=== PATIENT | female | born 1940 | race Caucasian/White ===

== ENCOUNTER → 2016-10-27 | Outpatient (CLI) | payer MEDICARE, BC ==
[2016-10-27 09:36] LABS: Basophils # (A) 0.1 k/uL (0-0.2); Basophils % (A) 1 %; CH 30.9; CHCM 33.7; Eosinophils # (A) 0.2 k/uL (0-0.7); Eosinophils % (A) 4 %; HCT 40.8 % (34.0-46.0); HDW 2.58; HGB 13.2 gm/dL (11.4-16.0); Luc # (Auto) 0.13; Luc % (Auto) 2; Lymphocytes # (A) 1.3 k/uL (1.0-4.8); Lymphocytes % (A) 23 %; MCH 29.7 pg (25.0-35.0); MCHC 32.3 g/dL (31.0-37.0); MCV 92.2 fL (80.0-100.0); Mean Platelet Volume 8.3; Monocytes # (A) 0.4 k/uL (0-1.0); Monocytes % (A) 7 %; Neutrophils # (A) 3.7 k/uL (1.3-7.7); Neutrophils % (A) 63 %; RBC 4.43 m/uL (3.80-5.40); RDW 13.1 % (11.5-15.5); WBC 5.8 k/uL (3.8-10.6)
[2016-10-27 09:42] LABS: ALT 27 U/L (9-52); AST 20 U/L (14-36); Alkaline Phosphatase 78 U/L (38-126); Anion Gap 9 mmol/L; Blood Urea Nitrogen 21 mg/dL (7-17); Calcium 9.9 mg/dL (8.4-10.2); Carbon Dioxide 30 mmol/L (22-30); Chloride 104 mmol/L (98-107); Cholesterol 179 mg/dL (<200); Glucose 95 mg/dL (74-99); HDL Cholesterol 68 mg/dL (40-60); Non-African American GFR(MDRD) 50 (>60 ml/min/1.73 sqM); Sodium 143 mmol/L (137-145); Total Bilirubin 1.5 mg/dL (0.2-1.3); Total Protein 7.3 g/dL (6.3-8.2); Triglycerides 109 mg/dL (<150)
== END | disposition home or self-care (01) ==
LOC: LABWHC1 08:55
PROVIDERS: ATTEND Physician Assistant Medical
DX: I10 Essential (primary) hypertension (principal); I27.2 Other secondary pulmonary hypertension; Z86.39 Personal history of other endocrine, nutritional and metabolic disease
CPT/HCPCS: 36415; 80053; 80061; 84443; 85025

== ENCOUNTER → 2017-02-17 | Outpatient (CLI) | payer MEDICARE, BC ==
[2017-02-17 09:44] LABS: CHCM 33.1; HCT 38.8 % (34.0-46.0); HDW 2.41; HGB 12.8 gm/dL (11.4-16.0); Mean Platelet Volume 8.2; RBC 4.13 m/uL (3.80-5.40); RDW 13.5 % (11.5-15.5); WBC 5.7 k/uL (3.8-10.6)
[2017-02-17 10:25] LABS: Calcium 9.9 mg/dL (8.4-10.2); Potassium 4.1 mmol/L (3.5-5.1); Total Bilirubin 1.5 mg/dL (0.2-1.3); Total Protein 7.4 g/dL (6.3-8.2)
== END | disposition home or self-care (01) ==
LOC: LABWHC1 08:27
PROVIDERS: ATTEND Physician Assistant Medical
DX: E03.9 Hypothyroidism, unspecified (principal); M85.80 Other specified disorders of bone density and structure, unspecified site; F41.1 Generalized anxiety disorder
CPT/HCPCS: 36415; 80053; 80061; 84439; 84443; 84480; 85027

== ENCOUNTER → 2017-03-15 | Outpatient (CLI) | payer MEDICARE, BC ==
--- NOTE | 2017-03-16 13:01 | MM ---
Reason for exam: screening (asymptomatic). Last mammogram was performed 2 years and 1 month ago. History: Patient is postmenopausal. Benign excisional biopsy of the right breast. Took estrogen for 7 years beginning at age 45. Took progesterone for 7 years beginning at age 45. Physical Findings: A clinical breast exam by your physician is recommended on an annual basis and results should be correlated with mammographic findings. MG Screening Mammo w CAD Bilateral CC and MLO view(s) were taken. Prior study comparison: February 15, 2015, bilateral MG screening mammo w CAD. The breast tissue is almost entirely fat. No significant changes when compared with prior studies. ASSESSMENT: Benign, BI-RAD 2 RECOMMENDATION: Routine screening mammogram of both breasts in 1 year.
== END | disposition home or self-care (01) ==
LOC: RADMAMWWP 09:15
PROVIDERS: ATTEND Family Medicine
DX: Z12.31 Encounter for screening mammogram for malignant neoplasm of breast (principal)

== ENCOUNTER → 2017-04-29 | Outpatient (CLI) | payer MEDICARE, BC ==
[2017-04-29 09:12] LABS: Basophils % (A) 1 %; CH 30.4; CHCM 33.3; Eosinophils # (A) 0.2 k/uL (0-0.7); Eosinophils % (A) 4 %; HCT 36.9 % (34.0-46.0); HDW 2.43; HGB 12.4 gm/dL (11.4-16.0); Luc # (Auto) 0.21; Luc % (Auto) 4; Lymphocytes # (A) 1.1 k/uL (1.0-4.8); Lymphocytes % (A) 21 %; MCHC 33.8 g/dL (31.0-37.0); MCV 91.7 fL (80.0-100.0); Mean Platelet Volume 8.3; Monocytes # (A) 0.4 k/uL (0-1.0); Monocytes % (A) 7 %; Neutrophils # (A) 3.4 k/uL (1.3-7.7); Neutrophils % (A) 64 %; RBC 4.02 m/uL (3.80-5.40); RDW 13.4 % (11.5-15.5); WBC 5.3 k/uL (3.8-10.6); WBC (Perox) 5.79
== END | disposition home or self-care (01) ==
LOC: LABPAT 08:38
PROVIDERS: ATTEND Obstetrics & Gynecology
DX: Z01.810 Encounter for preprocedural cardiovascular examination (principal); I10 Essential (primary) hypertension; N95.0 Postmenopausal bleeding
CPT/HCPCS: 85025; 93005

== ENCOUNTER 2017-05-04 08:24 | Day surgery (SDC) | payer MEDICARE, BC ==
[2017-04-28 09:13] VITALS: BMI 38.3
[~2017-05-04 08:24] MED LIST: DEXAMETHASONE SOD PHOSPHATE 10 MG/ML 1 ML VIAL IV ONE; HYDROmorphone 1 MG/ML 1 ML SYRINGE IVP PRN; LACTATED RINGERS 1,000 ML IV SCH; MIDAZOLAM 2 MG/2 ML VIAL IV PRN; ONDANSETRON 4 MG/2 ML VIAL IVP ONE; Pre Op ABX Message 1 EACH MISC MISCELLANE ONE
[2017-05-04] MEDS ORDERED: LIDOCAINE 1% 20 ML VIAL (10MG/ML) FOR IV START INTRADERMA ONE (09:07)
[2017-05-04] MEDS ORDERED: MIDAZOLAM 2 MG/2 ML VIAL ONE (09:43)
[2017-05-04] MEDS ORDERED: SUCCINYLCHOLINE CHLORIDE 100 MG/5 ML SYR IV ONE (09:43)
[2017-05-04] MEDS ORDERED: fentaNYL (PF) 50 MCG/ML 2 ML AMP ONE (09:43)
[2017-05-04] MEDS ORDERED: LIDOCAINE 1% INJ 10MG/ML (20 ML MDV) ONE (09:43)
[2017-05-04] MEDS ORDERED: KETOROLAC 30 MG/ML 1 ML VIAL ONE (09:43)
[2017-05-04] MEDS ORDERED: PROPOFOL 10 MG/ML 20 ML VIAL IV ONE (09:43)
[2017-05-04] MEDS ORDERED: SILVER NITRATE APPLICATOR 1 EACH STICK..EA. TOPICAL ONE (10:15)
--- NOTE | 2017-05-04 10:20 | P.OP ---
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 Procedure(s) Performed: Hysteroscopy, fractional D&C Implants: Anesthesia: GETA Surgeon: Joselyn Carbajal Estimated Blood Loss (ml): 10 IV fluids (ml): 400 Urine output (ml): 50 Pathology: other (Endometrial curettings and polyps, endocervical curettings) Condition: stable Disposition: PACU Indications for Procedure: Operative Findings: Description of Procedure: Patient is brought to the operating suite where a general anesthetic is administered. She's placed in the dorsal lithotomy position. The cervix vagina perineum and lower abdominal areas are all prepped and draped in usual sterile fashion. The appropriate timeout is performed to assure proper patient and procedural identification. Bladder is drained for approximately 50 mL of clear yellow urine. Weighted speculum was placed into the vagina. Anterior lip of the atrophic appearing cervix is grasped with a double-tooth tenaculum. And of cervical curettings are performed with a Chucho curet and sent to pathology under separate cover. Uterus then sounds to a depth of 11 cm in the anteverted position. The cervix is gently and systematically dilated using Hanks dilators. The hysteroscope was then placed and the cavity is distended with sterile saline. There is a cluster of polypoid appearing tissue in the left upper aspect of the uterus. The hysteroscope was removed. A medium sharp curette is used and multiple polyps are procured. Polyp forcep is used. When I am convinced that the cavity is negative the hysteroscope is reintroduced. The cavity is free distended and appears clear. All sponge needle and enhancement counts are correct at the end of this procedure. A nitrous stick is used on the anterior lip of the cervix to coagulate a small blood vessel. Hemostasis is excellent. Patient is brought back to the recovery room in stable condition with vital signs including a pulse of 54, 99% O2 saturation, blood pressure 112/59. Toradol is given prior to leaving the operative suite. Antibiotics are not deemed appropriate.
[2017-05-04 10:51] VITALS: TEMP 97
--- NOTE | 2017-05-04 11:25 | XR ---
EXAMINATION TYPE: XR chest 1V DATE OF EXAM: 05/04/2017 COMPARISON: Prior chest x-ray 01/07/2016 HISTORY: Cough TECHNIQUE: Single frontal view of the chest is obtained. FINDINGS: There are overlying cardiac leads. Heart is likely stable accounting for differences in [place]. No pneumothorax or pleural effusion evident. Strand-like densities are present within the ken ngs which may reflect atelectasis or scarring. IMPRESSION: There are areas of probable atelectasis, follow-up PA and lateral chest x-ray is recomme nded.
[2017-05-04 12:07] VITALS: BP 160/72; PULSE 74; RESP 18
== END 2017-05-04 12:08 | disposition home or self-care (01) ==
LOC: OR 08:24
PROVIDERS: ATTEND Obstetrics & Gynecology
DX: N85.02 Endometrial intraepithelial neoplasia [EIN] (principal); I10 Essential (primary) hypertension; E07.9 Disorder of thyroid, unspecified; Z79.899 Other long term (current) drug therapy; Z91.09 Other allergy status, other than to drugs and biological substances
CPT/HCPCS: 88305; 71010; 58558; J2250; J1100; J2405; J2001; J3010; J1885; J0330; J2704

== ENCOUNTER → 2017-07-13 | Outpatient (CLI) | payer MEDICARE, BC ==
[2017-07-13 10:19] LABS: Basophils % (A) 1 %; CH 30.6; CHCM 32.3; Eosinophils # (A) 0.2 k/uL (0-0.7); Eosinophils % (A) 3 %; HCT 40.4 % (34.0-46.0); HDW 2.35; HGB 13.3 gm/dL (11.4-16.0); Luc # (Auto) 0.15; Luc % (Auto) 3; Lymphocytes # (A) 0.9 k/uL (1.0-4.8); Lymphocytes % (A) 18 %; MCH 31.2 pg (25.0-35.0); MCHC 32.8 g/dL (31.0-37.0); MCV 94.9 fL (80.0-100.0); Mean Platelet Volume 7.7; Monocytes # (A) 0.3 k/uL (0-1.0); Monocytes % (A) 6 %; Neutrophils # (A) 3.6 k/uL (1.3-7.7); Neutrophils % (A) 70 %; RBC 4.25 m/uL (3.80-5.40); RDW 13.2 % (11.5-15.5); WBC 5.1 k/uL (3.8-10.6); WBC (Perox) 5.59
[2017-07-13 10:32] LABS: Anion Gap 9 mmol/L; Blood Urea Nitrogen 17 mg/dL (7-17); Carbon Dioxide 29 mmol/L (22-30); Chloride 103 mmol/L (98-107); Non-African American GFR(MDRD) 54 (>60 ml/min/1.73 sqM); Potassium 3.8 mmol/L (3.5-5.1); Sodium 141 mmol/L (137-145)
== END | disposition home or self-care (01) ==
LOC: LABPAT 09:18
PROVIDERS: ATTEND Obstetrics & Gynecology
DX: Z01.812 Encounter for preprocedural laboratory examination (principal); N85.00 Endometrial hyperplasia, unspecified
CPT/HCPCS: 80051; 82565; 84520; 85025; 86850; 86900; 86901; 87086

== ENCOUNTER 2017-07-20 05:55 | Day surgery (SDC) | payer MEDICARE, BC ==
[2017-07-12 12:22] VITALS: BMI 37.1
--- NOTE | 2017-07-19 14:17 | HP ---
HISTORY AND PHYSICAL DATE OF SERVICE: 07/30/2017 This is a 76-year-old female, 5, para 2-0-3-2 who presented initially with a history of postmenopausal bleeding. Patient underwent D&C and hysteroscopy on 05/04/2017, pathology report revealing hyperplasia, complex with atypia. She has a previous history of hyperplasia of the endometrium in 2013, which was simple without atypia. At that time, she was treated with Megace for 3 months, repeat sampling revealed disordered proliferative endometrium. Her vaginal bleeding has returned, and re-evaluation is suggesting progression of the lesion. At this time, she is electing hysterectomy. We will do vaginal hysterectomy, inspect the ovaries and removed them only if abnormal to inspection or easily obtainable, there is no evidence of rectocele or cystocele noted. Patient is also consented to total abdominal hysterectomy, bilateral salpingo-oophorectomy, if surgery cannot be accomplished through the vaginal route. All risks and benefits have been reviewed in detail. All questions answered. Second opinion offered and declined. PAST MEDICAL HISTORY: Significant for hypertension and thyroid disease. PAST SURGICAL HISTORY: Endometrial biopsy in the past, D&C recently, cataract removal. CURRENT MEDICATIONS: 1. Atenolol twice daily. 2. Hydrochlorothiazide daily. 3. Simvastatin daily. 4. Synthroid daily. Allergies include over the counter DRY MOUTH LUBRICANT SPRAY to which she reports swelling of the oral cavity. FAMILY HISTORY: Significant for asthma, heart problems, and intestinal cancer. REPRODUCTIVE HISTORY: Three miscarriages noted, 2 vaginal deliveries, both uncomplicated and full term. SOCIAL HISTORY: Patient is a nonsmoker, she denies alcohol or drug use. REVIEW OF SYSTEMS: Otherwise, negative. PHYSICAL EXAM: This is a pleasant female, 5 foot 5 inches, 232 pounds, BMI 38, blood pressure 142/90. The general physical exam reveals normal appearing, well-nourished constitution. The neck is negative for lymphadenopathy, thyroid is normal in size with no nodules. Chest is clear to auscultation in all hess anteriorly and posteriorly. Cardiovascular exam reveals regular rate and rhythm, no obvious murmur click or rub. Breasts revealed breasts normal to inspection, breast exam is declined by the patient secondary to recent normal mammogram. Abdomen is soft, nontender, moderately obese, no organosplenomegaly. Good bowel sounds. No pain to deep palpation or rigidity. On external genitalia exam, organs appears slightly atrophic, no unusual discharge or odor. Cervix is multiparous, without active bleeding upon inspection. Uterus is small, mobile, midline, with a small amount of prolapse noted. Adnexa are negative, small, no masses or tenderness. Rectal exam reveals good sphincter tone, FIT negative stool, no rectal masses. There are no obvious lymph nodes noted in the inguinal region. IMPRESSION: Postmenopausal bleeding, D&C revealing endometrial hyperplasia, complex with atypia. Due to the recurrent and worsening nature of this lesion, decision has been made to proceed with hysterectomy. PLAN: We will proceed with vaginal hysterectomy, possible bilateral salpingo-oophorectomy, possible KENNY-BSO. The risks of surgery including bleeding, infection, perforation or damage to bowel, bladder, ureters, all have been reviewed. Second opinion is offered and declined. I believe patient understands our discussion with no reservation or other issues. MMODL / IJN: [id number] /
[~2017-07-20 05:55] MED LIST changes: +HYDROmorphone 0.5 MG/0.5 ML SYRINGE IVP PRN; -HYDROmorphone 1 MG/ML 1 ML SYRINGE IVP PRN; -LACTATED RINGERS 1,000 ML IV SCH; -Pre Op ABX Message 1 EACH MISC MISCELLANE ONE; +ceFAZolin 2 GM in SODIUM CHLORIDE 0.9% 100 ML IVPB ONE
[2017-07-20] MEDS ORDERED: LIDOCAINE 1% 20 ML VIAL (10MG/ML) FOR IV START INTRADERMA ONE (06:40)
[2017-07-20] MEDS: LACTATED RINGERS 1,000 ML IV SCH ×3 (06:42→22:17)
[2017-07-20] MEDS ORDERED: fentaNYL (PF) 50 MCG/ML 2 ML AMP ONE (07:50)
[2017-07-20] MEDS ORDERED: MIDAZOLAM 2 MG/2 ML VIAL ONE (07:50)
[2017-07-20] MEDS ORDERED: LIDOCAINE 1% INJ 10MG/ML (20 ML MDV) ONE (07:50)
[2017-07-20] MEDS ORDERED: PROPOFOL 10 MG/ML 20 ML VIAL IV ONE (07:50)
[2017-07-20] MEDS ORDERED: KETOROLAC 30 MG/ML 1 ML VIAL ONE (07:50)
[2017-07-20] MEDS ORDERED: VASOPRESSIN 20 UNIT/ML 1 ML VIAL SQ ONE (08:16)
[2017-07-20] MEDS ORDERED: VASOPRESSIN 20 UNIT/ML 1 ML VIAL IM ONE (08:16)
[2017-07-20] MEDS ORDERED: LACTATED RINGERS 1,000 ML IV ONE (09:00)
[2017-07-20] MEDS ORDERED: BACITRACIN 500 UNIT/GM OINT 28.4 GM TUBE TOPICAL ONE (09:11)
[2017-07-20] MEDS ORDERED: ZOLPIDEM 5 MG TAB PO PRN (09:25)
[2017-07-20] MEDS ORDERED: diphenhydrAMINE 50 MG/ML 1 ML VIAL IVP PRN ×2 (09:25→09:27)
[2017-07-20] MEDS ORDERED: Acetaminophen-Codeine 300-30mg TAB PO PRN (09:25)
[2017-07-20] MEDS ORDERED: METOCLOPRAMIDE 5 MG/ML 2 ML VIAL IVP PRN ×2 (09:25→09:27)
[2017-07-20] MEDS ORDERED: IBUPROFEN 600 MG TAB PO PRN (09:25)
--- NOTE | 2017-07-20 09:25 | P.OP ---
Date of Procedure: 07/20/17 Preoperative Diagnosis: Postmenopausal bleeding, complex endometrial hyperplasia with atypia Postoperative Diagnosis: Pathology pending Procedure(s) Performed: Vaginal hysterectomy Anesthesia: spinal Surgeon: Joselyn Carbajal Division Plant Engineer #1: Delia Burden Estimated Blood Loss (ml): 150 IV fluids (ml): 1,300 Urine output (ml): 150 Pathology: other (Cervix and uterus) Condition: stable Disposition: PACU Indications for Procedure: Complex endometrial hyperplasia with atypia Description of Procedure: Patient is brought to the operating suite where a spinal with Duramorph is administered. She's placed in the dorsal lithotomy position. The cervix vagina perineum and periurethral areas are all prepped and draped in usual sterile fashion. The appropriate timeout was performed to assure proper patient and procedural identification. Antibiotics are given. Examination under anesthesia reveals a mobile uterus high in the peritoneal cavity, negative adnexa bilaterally. Bladder is drained for approximately 150 mL of clear yellow urine. Weighted speculum was placed into the vagina. Anterior lip of the cervix is grasped with a double-tooth tenaculum. Cervix is injected circumferentially with dilute Pitressin solution. The blade scalpel is used to incise the mucosa circumferentially with a V like positioning in the back. Sponge stick is used to sweep the mucosa from the underlying plane. At all times the bladder is Well from the operative field to avoid bladder and/or ureteral injury. Peritoneum is entered at 6:00, suture tied with 2-0 Vicryl and held with a hemostat. Large billed speculum is then placed into the peritoneal cavity. The right uterosacral cardinal ligament complex is identified, clamped with a Nancy clamp cut and held with a 0 Vicryl suture laterally. The same procedure is carried out on the contralateral uterosacral cardinal ligament complex. Skeletonization is performed and the uterine vasculature is identified. It is clamped, cut, suture tied with 0 Vicryl. 2 additional pedicles are taken superior to the vessels. The bladder is again swept well from the operative field and the anterior peritoneum was entered at 12:00. Nancy clamps are used across the final pedicles and the uterus and cervix are removed and set aside. 0 Vicryl suture is used on these pedicles, they are tied, flashed, retied for excellent hemostasis. A sponge stick is used and bilateral ovaries are very high in the peritoneal cavity, they appear atrophic and within normal limits and therefore left in situ. All pedicles are reexamined and noted to be hemostatically intact. This speculum is then changed to the shallow weighted speculum. The 2-0 Vicryl at 6: 00 is brought around in a pursestring fashion to close the peritoneal cavity. The uterosacral cardinal ligaments are brought across to incorporate the opposite complex as well as vaginal mucosa. 2 additional [id number] sutures are used of 0 Vicryl for final cuff closure. Petersen is placed and urine is noted to be clear. Rectal exam reveals no defects through the rectal mucosa. The vagina is packed with a 1 inch iodophor gauze with basic tracing. All sponge needle and enhancement counts are correct at the end of the procedure. Patient is brought back to recovery room in stable condition with vital signs including pulse of 62, blood pressure 110/50.
[2017-07-20] MEDS ORDERED: NALBUPHINE 10 MG/ML AMPUL IV PRN (09:27)
[2017-07-20] MEDS ORDERED: MORPHINE SULFATE 2 MG/ML SYRINGE IVP PRN (09:27)
[2017-07-20] MEDS ORDERED: PROMETHAZINE INJ 6.25 MG in SODIUM CHLORIDE 0.9% 50 ML IVPB PRN (09:27)
[2017-07-20] MEDS ORDERED: NALOXONE 0.4 MG/ML 1 ML VIAL IV PRN (09:27)
[2017-07-20] MEDS ORDERED: diphenhydrAMINE 50 MG/ML 1 ML VIAL IVP ONE (10:07)
[2017-07-21] MEDS ORDERED: LEVOTHYROXINE 88 MCG TAB PO SCH (07:30)
--- NOTE | 2017-07-21 07:59 | P.DS ---
Providers Date of admission: 07/20/17 Expected date of discharge: 07/21/17 Attending physician: Joselyn Carbajal Primary care physician: [place] Hospital Course: This is a 76-year-old female who presented with postmenopausal bleeding. Dilatation and curettage reveale heightd endometrial hyperplasia with atypia. Discussion ensued, and decision was made to proceed with vaginal hysterectomy. Please see my dictated history and physical for details. Patient was admitted and underwent a vaginal hysterectomy, utilizing a spinal with Duramorph. The ovaries were inspected, they were atrophic and high in the pelvis, and therefore left in situ. Patient had no issues in the operating room , please see my dictated operative report for details. This morning the vaginal packing has been removed. There is minimal to scant vaginal drainage. Pain is well-controlled. She is ambulating, passing flatus, and tolerating regular diet. The Petersen catheter has been discontinued, we are awaiting a spontaneous void. Extremities are negative for edema, chest is clear , patient has no complaints. Antihypertensive medications have been restarted this morning. Patient will be discharged home later today. I have reminded her no intercourse, tampons or douching. She will call the office with any fevers shakes or chills, foul smelling or bloody vaginal drainage, with any pain not alleviated by Aleve over- the-counter, or indeed with any concerns. Pathology report at this time is pending, we will follow-up in the office for further treatment if necessary. Patient is reminded no heavy lifting, no driving for 2 weeks, no intercourse Patient Condition at Discharge: Good Plan - Discharge Summary New Discharge Prescriptions: No Action Cholecalciferol [Vitamin D3] 1,000 unit PO DAILY Calcium Carbonate [Calcium] 600 mg PO DAILY Simvastatin [Zocor] 20 mg PO HS Levothyroxine Sodium [Synthroid] 88 mcg PO QAM Hydrochlorothiazide 25 mg PO QAM Losartan [Cozaar] 50 mg PO QAM Ubidecarenone [Co Q-10] 200 mg PO DAILY Aspirin EC [Ecotrin] 81 mg PO HS Multivitamin [Multivitamins Adult Gummies] 1 each PO QAM Metoprolol Succinate (ER) [Toprol Xl] 25 mg PO QAM Discharge Medication List Aspirin EC [Ecotrin] 81 mg PO HS 01/07/16 [History] Calcium Carbonate [Calcium] 600 mg PO DAILY 01/07/16 [History] Cholecalciferol [Vitamin D3] 1,000 unit PO DAILY 01/07/16 [History] Hydrochlorothiazide 25 mg PO QAM 01/07/16 [History] Levothyroxine Sodium [Synthroid] 88 mcg PO QAM 01/07/16 [History] Losartan [Cozaar] 50 mg PO QAM 01/07/16 [History] Simvastatin [Zocor] 20 mg PO HS 01/07/16 [History] Ubidecarenone [Co Q-10] 200 mg PO DAILY 01/07/16 [History] Multivitamin [Multivitamins Adult Gummies] 1 each PO QAM 04/28/17 [History] Metoprolol Succinate (ER) [Toprol Xl] 25 mg PO QAM 07/12/17 [History] Follow up Appointment(s)/Referral(s): Joselyn Carbajal MD [STAFF PHYSICIAN] - 2 Weeks Discharge Disposition: HOME SELF-CARE
[2017-07-21] MEDS ORDERED: LOSARTAN 50 MG TAB PO SCH (09:00)
[2017-07-21] MEDS ORDERED: HYDROCHLOROTHIAZIDE 25 MG TAB PO SCH (09:00)
[2017-07-21] MEDS ORDERED: METOPROLOL SUCCINATE (ER) 25 MG TAB.ER.24H PO SCH (09:00)
[2017-07-21 12:23] VITALS: BP 144/71; PULSE 71; RESP 16; TEMP 97.2
--- NOTE | 2017-07-21 13:24 | P.PN ---
Progress Note - Text 10/06/2004 Anesthesia POD 1. Patient is status post vaginal hysterectomy under spinal anesthesia with intra-thecal preservative free morphine 300 g. Unfortunately the patient was discharged prior to my during rounds today. I'm told by nursing that postoperative analgesia was very good and that there were no complications along the line of a post dural puncture headache.
== END 2017-07-21 12:55 | disposition home or self-care (01) ==
LOC: OR 05:55 → 6PED 09:19 → OR 21:10 → 6PED 21:10 → UNDOADMOB 21:10 → OR 07-21 12:55
PROVIDERS: ATTEND Obstetrics & Gynecology
DX: C55 Malignant neoplasm of uterus, part unspecified (principal); N85.02 Endometrial intraepithelial neoplasia [EIN]; I10 Essential (primary) hypertension; E07.9 Disorder of thyroid, unspecified; Z79.899 Other long term (current) drug therapy; Z88.8 Allergy status to other drugs, medicaments and biological substances
CPT/HCPCS: 88309; 58260; J2250; J1200; J1100; J2550; J2765; J0690; J2405; J2001; J3010; J1885; J2704; 86850; 86900; 86901

== ENCOUNTER → 2018-08-02 | Outpatient (CLI) | payer MEDICARE, BC ==
[2018-08-02 08:41] LABS: Basophils % (A) 1 %; Eosinophils # (A) 0.2 k/uL (0-0.7); Eosinophils % (A) 4 %; HCT 39.2 % (34.0-46.0); HGB 12.9 gm/dL (11.4-16.0); Lymphocytes # (A) 1.2 k/uL (1.0-4.8); Lymphocytes % (A) 20 %; MCH 30.3 pg (25.0-35.0); MCV 91.8 fL (80.0-100.0); Mean Platelet Volume 7.6; Monocytes # (A) 0.4 k/uL (0-1.0); Monocytes % (A) 7 %; Neutrophils # (A) 3.8 k/uL (1.3-7.7); Neutrophils % (A) 66 %; Platelet Count 175 k/uL (150-450); RBC 4.28 m/uL (3.80-5.40); RDW 13.5 % (11.5-15.5); WBC 5.7 k/uL (3.8-10.6)
[2018-08-02 16:36] LABS: T4, Free (Free Thyroxine) 1.2 ng/dL (0.80-1.80)
[2018-08-02 17:00] LABS: Albumin 4.3 g/dL (3.80-4.90); Albumin/Globulin Ratio 1.95 (1.20-2.10); Anion Gap 8.7 mmol/L (4.00-12.00); Calcium 9.8 mg/dL (8.7-10.3); Carbon Dioxide 28.3 mmol/L (21.6-31.8); Globulin 2.2 g/dL (2.1-3.7); LDL Cholesterol,Calculated 96.4 mg/dL (0.0-131.0); Phosphorus 3.5 mg/dL (2.4-5.1); Potassium 3.5 mmol/L (3.5-5.5); Total Bilirubin 1.5 mg/dL (0.3-1.2); Total Protein 6.5 g/dL (6.2-8.2); Uric Acid 5.5 mg/dL (2.9-7.7); VLDL Calculation 25.6 mg/dL (5.00-40.00)
== END | disposition home or self-care (01) ==
LOC: LABWHC1 08:01
PROVIDERS: ATTEND Family Medicine
DX: E03.9 Hypothyroidism, unspecified (principal); E78.5 Hyperlipidemia, unspecified; E04.9 Nontoxic goiter, unspecified; I10 Essential (primary) hypertension; M85.80 Other specified disorders of bone density and structure, unspecified site
CPT/HCPCS: 36415; 80053; 80061; 80069; 82306; 84439; 84443; 84481; 84550; 85025

== ENCOUNTER → 2018-09-05 | Outpatient (CLI) | payer MEDICARE, BC ==
--- NOTE | 2018-09-06 13:08 | MM ---
Reason for exam: screening (asymptomatic). Last mammogram was performed 1 year and 6 months ago. History: Patient is postmenopausal and history of other cancer. Benign excisional biopsy of the right breast. Took estrogen for 7 years beginning at age 45. Took progesterone for 7 years beginning at age 45. Physical Findings: A clinical breast exam by your physician is recommended on an annual basis and results should be correlated with mammographic findings. MG 3D Screening Mammo W/Cad Bilateral CC and MLO view(s) were taken. Prior study comparison: March 15, 2017, bilateral MG screening mammo w CAD. February 15, 2015, bilateral MG screening mammo w CAD. There are scattered fibroglandular densities. No significant changes when compared with prior studies. ASSESSMENT: Benign, BI-RAD 2 RECOMMENDATION: Routine screening mammogram of both breasts in 1 year.
== END | disposition home or self-care (01) ==
LOC: RADMAMWWP 13:48
PROVIDERS: ATTEND Family Medicine
DX: Z12.31 Encounter for screening mammogram for malignant neoplasm of breast (principal)
CPT/HCPCS: 77063; 77067

== ENCOUNTER 2021-05-04 22:18 | Observation (INO) | payer MEDICARE, BC ==
[2021-05-04 22:25] VITALS: RESP 18
[2021-05-04] MEDS ORDERED: SODIUM CHLORIDE 0.9% 1,000 ML IV STA (22:35)
--- NOTE | 2021-05-04 22:38 | ED ---
Recheck HPI - General Chief Complaint: Arrhythmia/Palpitations Stated Complaint: High BP, Fast Heart Rate Time Seen by Provider: 05/04/21 22:31 Source: patient, family, RN notes reviewed, old records reviewed Mode of arrival: ambulatory Limitations: no limitations - History of Present Illness MD Complaint: other (Recheck of multiple complaints including chest pain and abnormal EKG) -: unknown Returns Today for: Called Because of Abnormal Lab/Test (Abnormal EKG), persistent/worsening pain related to initial visit Symptoms Since Prior Visit: worsening pain Associated Symptoms: other (Severe anxiety) Treatments Prior to Arrival: other - Related Data Home Medications Medication Instructions Recorded Confirmed Cholecalciferol [Vitamin D3 (25 50 mcg PO DAILY@1400 01/07/16 05/05/21 Mcg = 1000 Iu)] Levothyroxine Sodium [Synthroid] 88 mcg PO DAILY 01/07/16 05/05/21 Simvastatin [Zocor] 20 mg PO HS 01/07/16 05/05/21 Ubidecarenone [Co Q-10] 200 mg PO DAILY@1400 01/07/16 05/05/21 hydroCHLOROthiazide 25 mg PO DAILY 01/07/16 05/05/21 Losartan Potassium 100 mg PO DAILY 05/05/21 05/05/21 Zinc 25 mg PO DAILY@1400 05/05/21 05/05/21 atenoloL [Atenolol] 25 mg PO BID 05/05/21 05/05/21 Allergies Allergy/AdvReac Type Severity Reaction Status Date / Time glucose oxidase Allergy redness of Verified 05/05/21 07:51 [From Biotene Dry Mouth] face lactoperoxidase Allergy redness of Verified 05/05/21 07:51 [From Biotene Dry Mouth] face potassium thiocyanate Allergy redness of Verified 05/05/21 07:51 [From Biotene Dry Mouth] face shellfish derived Allergy Vomiting Verified 05/05/21 07:51 sulfamethoxazole Allergy Rash/Hives Verified 05/05/21 07:51 [From Bactrim] trimethoprim [From Bactrim] Allergy Rash/Hives Verified 05/05/21 07:51 niacin AdvReac redness to Verified 05/05/21 07:51 face otc dry mouth spray Allergy redness of Uncoded 05/05/21 07:51 face Review of Systems ROS Statement: Those systems with pertinent positive or pertinent negative responses have been documented in the HPI. ROS Other: All systems not noted in ROS Statement are negative. Past Medical History Past Medical History: Hyperlipidemia, Hypertension, Thyroid Disorder Additional Past Medical History / Comment(s): abnormal vaginal bleeding History of Any Multi-Drug Resistant Organisms: None Reported Past Surgical History: Adenoidectomy, Tonsillectomy Additional Past Surgical History / Comment(s): nasal sx-bx done was neg, maris cataract-lens implants, bx rt breast/lumpectomy(was benign) Past Anesthesia/Blood Transfusion Reactions: No Reported Reaction Additional Past Anesthesia/Blood Transfusion Reaction / Comment(s): no blood transfusions Past Psychological History: No Psychological Hx Reported Smoking Status: Never smoker Past Alcohol Use History: None Reported Past Drug Use History: None Reported - Past Family History Father Family Medical History: Cancer Additional Family Medical History / Comment(s): cancer of the bowel, glaucoma Mother Family Medical History: Asthma Additional Family Medical History / Comment(s): at age 69, lung disease, mental health issues General Exam Limitations: no limitations General appearance: alert, in no apparent distress, anxious Head exam: Present: atraumatic, normocephalic, normal inspection Eye exam: Present: normal appearance, PERRL, EOMI. Absent: scleral icterus, conjunctival injection, periorbital swelling ENT exam: Present: normal exam, mucous membranes moist Neck exam: Present: normal inspection. Absent: tenderness, meningismus, lymphadenopathy Respiratory exam: Present: normal lung sounds bilaterally. Absent: respiratory distress, wheezes, rales, rhonchi, stridor Cardiovascular Exam: Present: regular rate, normal rhythm, normal heart sounds. Absent: systolic murmur, diastolic murmur, rubs, gallop, clicks GI/Abdominal exam: Present: soft, normal bowel sounds. Absent: distended, tenderness, guarding, rebound, rigid Extremities exam: Present: normal inspection, full ROM, normal capillary refill. Absent: tenderness, pedal edema, joint swelling, calf tenderness Back exam: Present: normal inspection Neurological exam: Present: alert, oriented X3, CN II-XII intact Psychiatric exam: Present: normal affect, normal mood Skin exam: Present: warm, dry, intact, normal color. Absent: rash Course Vital Signs 08/01/21 08/01/21 08/01/21 22:20 22:45 23:15 Temperature 97.8 F Pulse Rate 66 67 56 L Respiratory 18 18 18 Rate Blood Pressure 191/75 159/74 168/73 O2 Sat by Pulse 99 99 100 Oximetry 05/04/21 23:45 Temperature Pulse Rate 64 Respiratory 18 Rate Blood Pressure 156/69 O2 Sat by Pulse 100 Oximetry - Reevaluation(s) Reevaluation #1: 05/05/21 Medical record is reviewed Patient symptoms are improved here in the ER At this time patient is very concerned regarding her symptoms and feels like there not being addressed Patient does not fill comfortable with discharge Patient is in no acute distress Patient informed results questions answered Medical Decision Making - Lab Data Result diagrams: 05/04/21 22:46 05/04/21 22:46 Lab Results 05/04/21 05/04/21 05/04/21 Range/Units 22:46 22:46 22:46 WBC 7.1 (3.8-10.6) k/uL RBC 4.31 (3.80-5.40) m/uL Hgb 13.8 (11.4-16.0) gm/dL Hct 39.3 (34.0-46.0) % MCV 91.2 (80.0-100.0) fL MCH 32.1 (25.0-35.0) pg MCHC 35.2 (31.0-37.0) g/dL RDW 12.9 (11.5-15.5) % Plt Count 146 L (150-450) k/uL MPV 9.4 Neutrophils % 76 % Lymphocytes % 15 % Monocytes % 5 % Eosinophils % 2 % Basophils % 1 % Neutrophils # 5.4 (1.3-7.7) k/uL Lymphocytes # 1.0 (1.0-4.8) k/uL Monocytes # 0.4 (0-1.0) k/uL Eosinophils # 0.2 (0-0.7) k/uL Basophils # 0.1 (0-0.2) k/uL PT 9.8 (9.0-12.0) sec INR 0.9 (<1.2) APTT 19.5 L (22.0-30.0) sec Sodium (137-145) mmol/L Potassium (3.5-5.1) mmol/L Chloride (98-107) mmol/L Carbon Dioxide (22-30) mmol/L Anion Gap mmol/L BUN (7-17) mg/dL Creatinine (0.52-1.04) mg/dL Est GFR (CKD-EPI)AfAm (>60 ml/min/1.73 sqM) Est GFR (CKD-EPI)NonAf (>60 ml/min/1.73 sqM) Glucose (74-99) mg/dL Calcium (8.4-10.2) mg/dL Phosphorus (2.5-4.5) mg/dL Magnesium (1.6-2.3) mg/dL Total Bilirubin (0.2-1.3) mg/dL AST (14-36) U/L ALT (4-34) U/L Alkaline Phosphatase (38-126) U/L Creatine Kinase (30-135) U/L Troponin I (0.000-0.034) ng/mL NT-Pro-B Natriuret Pep pg/mL Total Protein (6.3-8.2) g/dL Albumin (3.5-5.0) g/dL Urine Color Light Yellow Urine Appearance Clear (Clear) Urine pH 6.5 (5.0-8.0) Ur Specific [place] 1.006 (1.001-1.035) Urine Protein Negative (Negative) Urine Glucose (UA) Negative (Negative) Urine Ketones Negative (Negative) Urine Blood Negative (Negative) Urine Nitrite Negative (Negative) Urine Bilirubin Negative (Negative) Urine Urobilinogen <2.0 (<2.0) mg/dL Ur Leukocyte Esterase Negative (Negative) 05/04/21 05/04/21 05/04/21 Range/Units 22:46 22:46 22:46 WBC (3.8-10.6) k/uL RBC (3.80-5.40) m/uL Hgb (11.4-16.0) gm/dL Hct (34.0-46.0) % MCV (80.0-100.0) fL MCH (25.0-35.0) pg MCHC (31.0-37.0) g/dL RDW (11.5-15.5) % Plt Count (150-450) k/uL MPV Neutrophils % % Lymphocytes % % Monocytes % % Eosinophils % % Basophils % % Neutrophils # (1.3-7.7) k/uL Lymphocytes # (1.0-4.8) k/uL Monocytes # (0-1.0) k/uL Eosinophils # (0-0.7) k/uL Basophils # (0-0.2) k/uL PT (9.0-12.0) sec INR (<1.2) APTT (22.0-30.0) sec Sodium 137 (137-145) mmol/L Potassium 3.8 (3.5-5.1) mmol/L Chloride 103 (98-107) mmol/L Carbon Dioxide 25 (22-30) mmol/L Anion Gap 9 mmol/L BUN 22 H (7-17) mg/dL Creatinine 1.02 (0.52-1.04) mg/dL Est GFR (CKD-EPI)AfAm 60 (>60 ml/min/1.73 sqM) Est GFR (CKD-EPI)NonAf 52 (>60 ml/min/1.73 sqM) Glucose 114 H (74-99) mg/dL Calcium 10.4 H (8.4-10.2) mg/dL Phosphorus 3.7 (2.5-4.5) mg/dL Magnesium 1.6 (1.6-2.3) mg/dL Total Bilirubin 1.4 H (0.2-1.3) mg/dL AST 25 (14-36) U/L ALT 12 (4-34) U/L Alkaline Phosphatase 102 (38-126) U/L Creatine Kinase 44 (30-135) U/L Troponin I <0.012 (0.000-0.034) ng/mL NT-Pro-B Natriuret Pep 546 pg/mL Total Protein 7.2 (6.3-8.2) g/dL Albumin 4.4 (3.5-5.0) g/dL Urine Color Urine Appearance (Clear) Urine pH (5.0-8.0) Ur Specific [place] (1.001-1.035) Urine Protein (Negative) Urine Glucose (UA) (Negative) Urine Ketones (Negative) Urine Blood (Negative) Urine Nitrite (Negative) Urine Bilirubin (Negative) Urine Urobilinogen (<2.0) mg/dL Ur Leukocyte Esterase (Negative) - EKG Data -: EKG Interpreted by Me (EKG is sinus rhythm 64, NC 184 QRS 78 QTc 44) Disposition Clinical Impression: Chest pain, Hypertension, Palpitations, Anxiety Disposition: ADMITTED IP TO THIS HOSP Condition: Undetermined Is patient prescribed a controlled substance at d/c from ED?: No
[2021-05-04 23:11] LABS: Basophils # (A) 0.1 k/uL (0-0.2); Basophils % (A) 1 %; Eosinophils # (A) 0.2 k/uL (0-0.7); Eosinophils % (A) 2 %; HCT 39.3 % (34.0-46.0); HGB 13.8 gm/dL (11.4-16.0); Lymphocytes % (A) 15 %; MCH 32.1 pg (25.0-35.0); MCHC 35.2 g/dL (31.0-37.0); MCV 91.2 fL (80.0-100.0); Mean Platelet Volume 9.4; Monocytes # (A) 0.4 k/uL (0-1.0); Monocytes % (A) 5 %; Neutrophils # (A) 5.4 k/uL (1.3-7.7); Neutrophils % (A) 76 %; Platelet Count 146 k/uL (150-450); RBC 4.31 m/uL (3.80-5.40); RDW 12.9 % (11.5-15.5); WBC 7.1 k/uL (3.8-10.6)
[2021-05-04 23:22] LABS: Albumin 4.4 g/dL (3.5-5.0); Calcium 10.4 mg/dL (8.4-10.2); Magnesium 1.6 mg/dL (1.6-2.3); Phosphorus 3.7 mg/dL (2.5-4.5); Potassium 3.8 mmol/L (3.5-5.1); Total Bilirubin 1.4 mg/dL (0.2-1.3); Total Protein 7.2 g/dL (6.3-8.2)
[2021-05-04 23:39] LABS: INR 0.9 (<1.2); Prothrombin Time 9.8 sec (9.0-12.0)
[2021-05-04 23:41] LABS: Partial Thromboplastin Time 19.5 sec (22.0-30.0)
[2021-05-05] MEDS ORDERED: NITROGLYCERIN SL TABS 0.4 MG TAB SUBLINGUAL PRN (00:27)
[2021-05-05] MEDS ORDERED: LORazepam 2 MG/ML INJ IV PRN (00:30)
[2021-05-05] MEDS ORDERED: LORazepam 2 MG/ML INJ IV STA (00:30)
[2021-05-05 00:31] LABS: Appearance,Urine Clear (Clear); Bilirubin,Urine Negative (Negative); Blood,Urine Negative (Negative); Color,Urine Light Yellow; Glucose,Urine (UA) Negative (Negative); Ketones,Urine Negative (Negative); Leukocyte Esterase,Urine Negative (Negative); Nitrite,Urine Negative (Negative); PH, Urine 6.5 (5.0-8.0); Protein,Urine Negative (Negative); Specific Gravity,Urine 1.006 (1.001-1.035); Urobilinogen,Urine <2.0 mg/dL (<2.0)
[2021-05-05 07:11] VITALS: TEMP 97.7
--- NOTE | 2021-05-05 09:16 | US ---
EXAMINATION TYPE: US carotid duplex BILAT DATE OF EXAM: 05/05/2021 COMPARISON: NONE CLINICAL HISTORY: carrizales. EXAM MEASUREMENTS: RIGHT: Peak Systolic Velocity (PSV) cm/sec ----- Right CCA: 56.6 ----- Right ICA: 58.0 ----- Right ECA: 84.2 ICA/CCA ratio: 1.0 RIGHT: End Diastole cm/sec ----- Right CCA: 10.0 ----- Right ICA: 34.8 ----- Right ECA: 0 LEFT: Peak Systolic Velocity (PSV) cm/sec ----- Left CCA: 72.5 ----- Left ICA: 79.8 ----- Left ECA: 63.8 ICA/CCA ratio: 1.1 LEFT: End Diastole cm/sec ----- Left CCA: 21.7 ----- Left ICA: 21.7 ----- Left ECA: 18.8 VERTEBRALS (direction of flow): Right Vertebral: Antegrade Left Vertebral: Antegrade Rhythm: Normal No significant stenosis seen IMPRESSION: 1. Atherosclerotic plaque with no significant hemodynamic stenosis of the internal carotid arteries. Note is made there is no significant flow within the right external carotid artery which could be c ongenital or secondary to occlusion. NASCET criteria was used in interpretation of this exam? Criteria for Assigning % of Stenosis / Diameter reduction (Estimation based on the indirect measurements of the internal carotid artery velocities (ICA PSV). 1. Normal (no stenosis)=ICA PSV < 125 cm/s: ratio < 2.0: ICA EDV<40 cm/s. 2. Less than 50% stenosis=ICA PSV < 125 cm/s: ratio < 2.0: ICA EDV<40 cm/s. 3. 50 to 69% stenosis=ICA PSV of 125 to 230 cm/s: ration 2.0 ? 4.0: ICA EDV 40-100 cm/s. 4. Greater than 70% stenosis to near occlusion= ICA PSV > 230 cm/s: ratio > 4.0: ICA EDV > 100 cm/s. 5. Near occlusion= ICA PSV velocities may be low or undetectable: variable ratio and ICA EDV. 6. Total occlusion=unable to detect flow.
[2021-05-05] MEDS ORDERED: ASPIRIN 81 MG PO STA (09:34)
[2021-05-05] MEDS ORDERED: LOSARTAN 50 MG TAB PO SCH (10:00)
[2021-05-05] MEDS ORDERED: hydroCHLOROthiazide 25 MG TAB PO SCH (10:00)
--- NOTE | 2021-05-05 10:02 | P.CRDCN ---
History of Present Illness Consult date: 05/05/21 History of present illness: HISTORY OF PRESENT ILLNESS: This is a 80-year-old female with a past medical history significant for hypertension, hyperlipidemia, and anxiety. Patient has not followed up in the office since 2015 and was seen by Dr. Cantu at that time. We have been asked to see the patient in consultation for chest pain. Patient examined at the bedside. Patient denied having any chest pain or pressure prior to coming to the [facility] or at the time of my examination. She states that she came to the hospital secondary to elevated blood pressure. She states that last time she was at the doctor's office her blood pressure was 117/80. She reports that she occasionally checks her blood pressure at home. Recently she has noticed her blood pressure has been slowly rising when she has been checking it. She states yesterday that she took her blood pressure and it was 160/90 with a heart rate of 84. She reports feeling slightly dizzy at that time but currently denies any dizziness or lightheadedness. She is prescribed losartan and hydrochlorothiazide on an outpatient basis. The patient states she has been compliant with her medications. Patient's blood pressure this morning 106/53. EKG reveals sinus mechanism with no signs of acute ischemia Laboratory data: WBC 7.1. Hemoglobin 13.8. Platelet count 146. Sodium 137. Potassium 3.8. BUN 22. Creatinine 1.02. ProBNP 546. Troponin negative 3. Current home cardiac medications include Hydrocort thiazide 25 mg daily. Simvastatin 20 g daily. Losartan 100 mg daily. Most recent echocardiogram obtained in 2015 revealed ejection fraction 55-60%. Patient underwent Lexiscan stress test in January 2016 which was negative for ischemia. REVIEW OF SYSTEMS: At the time of my exam: CONSTITUTIONAL: Denies fever or chills. HEENT: Denies blurred vision, vision changes, or eye pain. Denies hemoptysis CARDIOVASCULAR: Denies chest pain. Denies orthopnea. Denies PND. Denies palpitations RESPIRATORY: Denies shortness of breath. GASTROINTESTINAL: Denies abdominal pain. Denies nausea or vomiting. HEMATOLOGIC: Denies bleeding disorders. GENITOURINARY: Denies any blood in urine. SKIN: Denies pruitis. Denies rash. PHYSICAL EXAM: VITAL SIGNS: Reviewed. GENERAL: Well-developed in no acute distress. HEENT: Head is normocephalic. Pupils are equal, round. Sclerae anicteric. Mucous membranes of the mouth are moist. Neck supple. No JVD or thyromegaly LUNGS: Respirations even and unlabored. Lungs essentially clear to auscultation bilaterally. HEART: Regular rate and rhythm. S1 and S2 heard. ABDOMEN: Soft. Nondistended. Nontender. EXTREMITIES: Normal range of motion. No clubbing or cyanosis. Peripheral pu lses intact. No lower extremity edema NEUROLOGIC: Awake and alert. Oriented x 3. ASSESSMENT: Chest pain, ruled out, patient denies having any episodes of chest pain Hypertension Hyperlipidemia Anxiety PLAN: Resume home cardiac medications Monitor blood pressure Patient may be discharged home from a cardiac standpoint and follow up outpatient Nurse practitioner note has been reviewed by physician. Signing provider agrees with the documented findings, assessment, and plan of care. Past Medical History Past Medical History: Hyperlipidemia, Hypertension, Thyroid Disorder Additional Past Medical History / Comment(s): abnormal vaginal bleeding History of Any Multi-Drug Resistant Organisms: None Reported Past Surgical History: Adenoidectomy, Tonsillectomy Additional Past Surgical History / Comment(s): nasal sx-bx done was neg, maris cataract-lens implants, bx rt breast/lumpectomy(was benign) Past Anesthesia/Blood Transfusion Reactions: No Reported Reaction Additional Past Anesthesia/Blood Transfusion Reaction / Comment(s): no blood transfusions Past Psychological History: No Psychological Hx Reported Smoking Status: Never smoker Past Alcohol Use History: None Reported Past Drug Use History: None Reported - Past Family History Father Family Medical History: Cancer Additional Family Medical History / Comment(s): cancer of the bowel, glaucoma Mother Family Medical History: Asthma Additional Family Medical History / Comment(s): at age 69, lung disease, mental health issues Medications and Allergies Home Medications Medication Instructions Recorded Confirmed Type Cholecalciferol [Vitamin D3] 50 mcg PO DAILY@1400 01/07/16 05/05/21 History Levothyroxine Sodium [Synthroid] 88 mcg PO DAILY 01/07/16 05/05/21 History Simvastatin [Zocor] 20 mg PO HS 01/07/16 05/05/21 History Ubidecarenone [Co Q-10] 200 mg PO DAILY@1400 01/07/16 05/05/21 History hydroCHLOROthiazide 25 mg PO DAILY 01/07/16 05/05/21 History Losartan Potassium 100 mg PO DAILY 05/05/21 05/05/21 History Zinc 25 mg PO DAILY@1400 05/05/21 05/05/21 History Allergies Allergy/AdvReac Type Severity Reaction Status Date / Time glucose oxidase Allergy redness of Verified 05/05/21 07:51 [From Biotene Dry Mouth] face lactoperoxidase Allergy redness of Verified 05/05/21 07:51 [From Biotene Dry Mouth] face potassium thiocyanate Allergy redness of Verified 05/05/21 07:51 [From Biotene Dry Mouth] face shellfish derived Allergy Vomiting Verified 05/05/21 07:51 sulfamethoxazole Allergy Rash/Hives Verified 05/05/21 07:51 [From Bactrim] trimethoprim [From Bactrim] Allergy Rash/Hives Verified 05/05/21 07:51 niacin AdvReac redness to Verified 05/05/21 07:51 face otc dry mouth spray Allergy redness of Uncoded 05/05/21 07:51 face Physical Exam Vitals: Vital Signs Temp Pulse Pulse Resp BP BP Pulse Ox 05/05/21 06:44 97.7 F 54 L 18 106/53 96 05/05/21 02:00 98.2 F 57 L 18 163/74 98 05/04/21 23:45 64 18 156/69 100 05/04/21 23:15 56 L 18 168/73 100 05/04/21 22:45 67 18 159/74 99 05/04/21 22:20 97.8 F 66 18 191/75 99 Intake and Output 05/04/21 05/05/21 05/05/21 22:59 06:59 14:59 Other: Voiding Method Toilet Weight 108.862 kg 108.862 kg Results 05/04/21 22:46 05/04/21 22:46 Cardiac Enzymes 05/04/21 05/04/21 05/05/21 Range/Units 22:46 22:46 02:35 AST 25 (14-36) U/L Troponin I <0.012 <0.012 (0.000-0.034) ng/mL 05/05/21 Range/Units 05:45 AST (14-36) U/L Troponin I <0.012 (0.000-0.034) ng/mL Coagulation 05/04/21 Range/Units 22:46 PT 9.8 (9.0-12.0) sec APTT 19.5 L (22.0-30.0) sec CBC 05/04/21 Range/Units 22:46 WBC 7.1 (3.8-10.6) k/uL RBC 4.31 (3.80-5.40) m/uL Hgb 13.8 (11.4-16.0) gm/dL Hct 39.3 (34.0-46.0) % Plt Count 146 L (150-450) k/uL Comprehensive Metabolic Panel 05/04/21 Range/Units 22:46 Sodium 137 (137-145) mmol/L Potassium 3.8 (3.5-5.1) mmol/L Chloride 103 (98-107) mmol/L Carbon Dioxide 25 (22-30) mmol/L BUN 22 H (7-17) mg/dL Creatinine 1.02 (0.52-1.04) mg/dL Glucose 114 H (74-99) mg/dL Calcium 10.4 H (8.4-10.2) mg/dL AST 25 (14-36) U/L ALT 12 (4-34) U/L Alkaline Phosphatase 102 (38-126) U/L Total Protein 7.2 (6.3-8.2) g/dL Albumin 4.4 (3.5-5.0) g/dL Current Medications Generic Name Dose Route Start Last Admin Trade Name Freq PRN Reason Stop Dose Admin Aspirin 81 mg 05/06/21 09:00 Aspirin 81 Mg PO DAILY SONNY Lorazepam 1 mg 05/05/21 00:30 Lorazepam 2 Mg/Ml Inj IV Q4HR PRN Anxiety Nitroglycerin 0.4 mg 05/05/21 00:27 Nitroglycerin Sl Tabs 0.4 Mg Tab SUBLINGUAL Q5M PRN Chest Pain Intake and Output 05/04/21 05/05/21 05/05/21 22:59 06:59 14:59 Other: Voiding Method Toilet Weight 108.862 kg 108.862 kg 05/04/21 22:46 05/04/21 22:46
[2021-05-05] MEDS ORDERED: LEVOTHYROXINE 88 MCG TAB PO SCH (10:15)
[2021-05-05 10:16] VITALS: BP 158/80; PULSE 60
--- NOTE | 2021-05-05 12:22 | ECHOF ---
Referral Reason:cp MEASUREMENTS -------- HEIGHT: 165.1 cm WEIGHT: 108.9 kg BP: IVSd: 1.1 cm (0.6 - 1.1) LVIDd: 3.9 cm (3.9 - 5.3) LVPWd: 1.2 cm (0.6 - 1.1) IVSs: 1.5 cm LVIDs: 1.2 cm LVPWs: 1.5 cm Ao Diam: 3.2 cm (2.0 - 3.7) AV Cusp: 1.8 cm (1.5 - 2.6) LA Diam: 3.5 cm (2.7 - 3.8) MV EXCURSION: 20.390 mm (> 18.000) MV EF SLOPE: 164 mm/s (70 - 150) EPSS: 0.5 cm MV E Salvador: 0.80 m/s MV DecT: 224 ms MV A Salvador: 0.64 m/s MV E/A Ratio: 1.26 AR PHT: 1603 ms RAP: 5.00 mmHg RVSP: 18.61 mmHg FINDINGS -------- Sinus rhythm. This was a technically difficult study with suboptimal views. The left ventricular size is normal. Left ventricular wall thickness is normal. Overall left vent ricular systolic function is normal with, an EF between 55 - 60 %. The RV was not well visualized. The left atrial size is normal. The right atrium was not well visualized. Lumason used The aortic valve was not well visualized. There is mild aortic regurgitation. The mitral valve is normal. There is trace mitral regurgitation. The tricuspid valve appears structurally normal. Trace tricuspid regurgitation present. Right edmond tricular systolic pressure is normal at < 35 mmHg. The pulmonic valve was not well visualized. The aortic root size is normal. Normal inferior vena cava with normal inspiratory collapse consistent with estimated right atrial pre ssure of 5 mmHg. There is no pericardial effusion. CONCLUSIONS -------- 1. This was a technically difficult study with suboptimal views. 2. Left ventricular wall thickness is normal. 3. Overall left ventricular systolic function is normal with, an EF between 55 - 60 %. 4. The left atrial size is normal. 5. There is mild aortic regurgitation. 6. There is trace mitral regurgitation. 7. Trace tricuspid regurgitation present. 8. There is no pericardial effusion. KEY ACCOUNT EXECUTIVE: Kadie Jiménez RDCS
--- NOTE | 2021-05-05 13:50 | P.HPIM ---
History of Present Illness 80-year-old pleasant female was admitted for chest pain although patient denied any chest pain, rule out acute medicine syndromes patient basically came into hospital because of elevated blood pressure although her blood pressure has been fairly stable actually low normal. Patient has occasional dizziness as well. Patient is on losartan, hydrochlorothiazide, atenolol. Patient says she usually gets anxious and her blood pressure goes up she becomes more anxious. Patient was treated with clonazepam in the past for anxiety, doesn't want to take anything on regular basis for anxiety. Patient was evaluated by cardiology. Patient blood pressure is fairly stable at this time. After extensive evaluation it appears patient has normal physiologic elevations of blood pressures and will not require any additional medications and in fact she may not require further blood pressure medication that is hydrochlorothiazide she is taking as elevated blood pressure makes her anxious are not discontinued and that medication. Patient was counseled regarding appropriate way to check the blood pressure asked her to check blood pressure 3 times a day take it to PCP, unless she has symptoms of end organ involvement with elevated blood pressure patient does need to be concerned about elevated blood pressures particularly they're transient. REVIEW OF SYSTEMS: CONSTITUTIONAL: No fever, no malaise, no fatigue. HEENT: No recent visual problems or hearing problems. Denied any sore throat. CARDIOVASCULAR: No chest pain, orthopnea, PND, no palpitations, no syncope. PULMONARY: No shortness of breath, no cough, no hemoptysis. GASTROINTESTINAL: No diarrhea, no nausea, no vomiting, no abdominal pain. NEUROLOGICAL: No headaches, no weakness, no numbness. HEMATOLOGICAL: Denies any bleeding or petechiae. GENITOURINARY: Denies any burning micturition, frequency, or urgency. MUSCULOSKELETAL/RHEUMATOLOGICAL: Denies any joint pain, swelling, or any muscle pain. ENDOCRINE: Denies any polyuria or polydipsia. The rest of the 14-point review of systems is negative. PHYSICAL EXAMINATION: GENERAL: The patient is alert and oriented x3, not in any acute distress. Well developed, well nourished. HEENT: Pupils are round and equally reacting to light. EOMI. No scleral icterus. No conjunctival pallor. Normocephalic, atraumatic. No pharyngeal erythema. No thyromegaly. CARDIOVASCULAR: S1 and S2 present. No murmurs, rubs, or gallops. PULMONARY: Chest is clear to auscultation, no wheezing or crackles. ABDOMEN: Soft, nontender, nondistended, normoactive bowel sounds. No palpable organomegaly. MUSCULOSKELETAL: No joint swelling or deformity. EXTREMITIES: No cyanosis, clubbing, or pedal edema. NEUROLOGICAL: Gross neurological examination did not reveal any focal deficits. SKIN: No rashes. Assessment and plan -Rule out a concurrent syndromes patient doesn't have any chest pain -Hypertension: Patient appears to have controlled blood pressure will not need any changes in her blood pressure medications and factor. Patient may not need hydrochlorothiazide. For now will continue with her home regimen and patient was asked to check the blood pressure at home. -Hyperlipidemia -Anxiety: Recommended SSRI. Patient is known to take something on regular basis because of which I'll give her a benzodiazepine that is an excellent as-needed basis for blood pressure. Patient will be discharged today to follow with PCP as an outpatient Past Medical History Past Medical History: Hyperlipidemia, Hypertension, Thyroid Disorder Additional Past Medical History / Comment(s): abnormal vaginal bleeding History of Any Multi-Drug Resistant Organisms: None Reported Past Surgical History: Adenoidectomy, Tonsillectomy Additional Past Surgical History / Comment(s): nasal sx-bx done was neg, maris cataract-lens implants, bx rt breast/lumpectomy(was benign) Past Anesthesia/Blood Transfusion Reactions: No Reported Reaction Additional Past Anesthesia/Blood Transfusion Reaction / Comment(s): no blood transfusions Past Psychological History: No Psychological Hx Reported Smoking Status: Never smoker Past Alcohol Use History: None Reported Past Drug Use History: None Reported - Past Family History Father Family Medical History: Cancer Additional Family Medical History / Comment(s): cancer of the bowel, glaucoma Mother Family Medical History: Asthma Additional Family Medical History / Comment(s): at age 69, lung disease, mental health issues Medications and Allergies Home Medications Medication Instructions Recorded Confirmed Type Cholecalciferol [Vitamin D3 (25 50 mcg PO DAILY@1400 01/07/16 05/05/21 History Mcg = 1000 Iu)] Levothyroxine Sodium [Synthroid] 88 mcg PO DAILY 01/07/16 05/05/21 History Simvastatin [Zocor] 20 mg PO HS 01/07/16 05/05/21 History Ubidecarenone [Co Q-10] 200 mg PO DAILY@1400 01/07/16 05/05/21 History hydroCHLOROthiazide 25 mg PO DAILY 01/07/16 05/05/21 History Losartan Potassium 100 mg PO DAILY 05/05/21 05/05/21 History Zinc 25 mg PO DAILY@1400 05/05/21 05/05/21 History atenoloL [Atenolol] 25 mg PO BID 05/05/21 05/05/21 History Allergies Allergy/AdvReac Type Severity Reaction Status Date / Time glucose oxidase Allergy redness of Verified 05/05/21 07:51 [From Biotene Dry Mouth] face lactoperoxidase Allergy redness of Verified 05/05/21 07:51 [From Biotene Dry Mouth] face potassium thiocyanate Allergy redness of Verified 05/05/21 07:51 [From Biotene Dry Mouth] face shellfish derived Allergy Vomiting Verified 05/05/21 07:51 sulfamethoxazole Allergy Rash/Hives Verified 05/05/21 07:51 [From Bactrim] trimethoprim [From Bactrim] Allergy Rash/Hives Verified 05/05/21 07:51 niacin AdvReac redness to Verified 05/05/21 07:51 face otc dry mouth spray Allergy redness of Uncoded 05/05/21 07:51 face Physical Exam Vitals: Vital Signs Temp Pulse Pulse Resp BP BP Pulse Ox 05/05/21 10:15 60 158/80 05/05/21 08:00 60 18 05/05/21 06:44 97.7 F 54 L 18 106/53 96 05/05/21 02:00 98.2 F 57 L 18 163/74 98 05/04/21 23:45 64 18 156/69 100 05/04/21 23:15 56 L 18 168/73 100 05/04/21 22:45 67 18 159/74 99 05/04/21 22:20 97.8 F 66 18 191/75 99 Intake and Output 05/04/21 05/05/21 05/05/21 22:59 06:59 14:59 Other: Voiding Method Toilet Toilet Weight 108.862 kg 108.862 kg Results CBC & Chem 7: 05/04/21 22:46 05/04/21 22:46 Labs: Abnormal Lab Results - Last 24 Hours (Table) 08/01/21 08/01/21 08/01/21 Range/Units 22:46 22:46 22:46 Plt Count 146 L (150-450) k/uL APTT 19.5 L (22.0-30.0) sec BUN 22 H (7-17) mg/dL Glucose 114 H (74-99) mg/dL Calcium 10.4 H (8.4-10.2) mg/dL Total Bilirubin 1.4 H (0.2-1.3) mg/dL Thrombosis Risk Factor Assmnt - Choose All That Apply Each Risk Factor Represents 3 Points: Age 75 years or older Thrombosis Risk Factor Assessment Total Risk Factor Score: 3 Thrombosis Risk Factor Assessment Level: Moderate Risk
--- NOTE | 2021-05-05 13:50 | P.DS ---
Providers Date of admission: 05/05/21 00:27 Attending physician: Lei Carter MD Consults: 05/05/21 00:27 Consult Physician Urgent Consulting Provider: Paulie Iverson Consult Reason/Comments: cp Do you want consulting provider notified?: Yes Primary care physician: Samira Roach [facility] Course: As mentioned in HPI Patient Condition at Discharge: Undetermined Plan - Discharge Summary Discharge Rx Participant: No New Discharge Prescriptions: Continue Cholecalciferol [Vitamin D3 (25 Mcg = 1000 Iu)] 50 mcg PO DAILY@1400 Simvastatin [Zocor] 20 mg PO HS Levothyroxine Sodium [Synthroid] 88 mcg PO DAILY hydroCHLOROthiazide 25 mg PO DAILY Ubidecarenone [Co Q-10] 200 mg PO DAILY@1400 Losartan Potassium 100 mg PO DAILY Zinc 25 mg PO DAILY@1400 No Action atenoloL [Atenolol] 25 mg PO BID Discharge Medication List Cholecalciferol [Vitamin D3 (25 Mcg = 1000 Iu)] 50 mcg PO DAILY@1400 01/07/16 [History] Levothyroxine Sodium [Synthroid] 88 mcg PO DAILY 01/07/16 [History] Simvastatin [Zocor] 20 mg PO HS 01/07/16 [History] Ubidecarenone [Co Q-10] 200 mg PO DAILY@1400 01/07/16 [History] hydroCHLOROthiazide 25 mg PO DAILY 01/07/16 [History] Losartan Potassium 100 mg PO DAILY 05/05/21 [History] Zinc 25 mg PO DAILY@1400 05/05/21 [History] atenoloL [Atenolol] 25 mg PO BID 05/05/21 [History] Follow up Appointment(s)/Referral(s): Samira Roach MD [Primary Care Provider] - 05/08/21 1:00 pm (At the [facility]) Patient Instructions/Handouts: Heart Healthy Diet (DC), Hypertension (DC) Activity/Diet/Wound Care/Special Instructions: Dr Desouza gave patient written prescription for Xanax 0.25mg 2 times per day as needed for anxiety Discharge Disposition: HOME SELF-CARE
[2021-05-05] MEDS ORDERED: NON FORMULARY DRUG (Ubidecarenone [Co Q-10] 100 MG Capsule) PO SCH (14:00)
[2021-05-05] MEDS ORDERED: ZINC SULFATE 220 MG CAP PO SCH (14:00)
[2021-05-05] MEDS ORDERED: CHOLECALCIFEROL 25 MCG (1000 IU) TABLET PO SCH (14:00)
[2021-05-05] MEDS ORDERED: ATORVASTATIN 10 MG TAB PO SCH (21:00)
[2021-05-06] MEDS ORDERED: ASPIRIN 325 MG TAB PO SCH (09:00)
[2021-05-06] MEDS ORDERED: ASPIRIN 81 MG PO SCH (09:00)
== END 2021-05-05 12:25 | disposition home or self-care (01) ==
LOC: EC 22:18 → 6NMEDSUR 05-05 00:27
PROVIDERS: ADMIT Family Medicine; ATTEND Family Medicine
DX: R07.89 Other chest pain (principal); E78.5 Hyperlipidemia, unspecified; F41.9 Anxiety disorder, unspecified; I10 Essential (primary) hypertension; Z79.890 Hormone replacement therapy; Z79.899 Other long term (current) drug therapy; Z82.5 Family history of asthma and other chronic lower respiratory diseases; Z96.1 Presence of intraocular lens
CPT/HCPCS: 99285; 96360; 36415; 93005; 83880; 80053; 82550; 83735; 84100; 84484 ×2; 85025; 85610; 85730; 81003; 93880; G0378; C8929; Q9950; 93306

== ENCOUNTER 2022-09-17 17:02 | Inpatient (IN) | payer MEDICARE, BC ==
--- NOTE | 2022-09-17 21:02 | ED ---
General Adult HPI - General Chief complaint: Recheck/Abnormal Lab/Rx Stated complaint: High BP Time Seen by Provider: 09/17/22 19:08 Source: patient Mode of arrival: ambulatory Limitations: no limitations - History of Present Illness Initial comments: This patient is an 82-year-old woman who presents with complaint that she is not feeling right. She states that time she has been feeling somewhat lightheaded and dizzy. Has noticed that her blood pressure has been running high. There has been some occasional shortness of breath. She has not noted chest pain. -: days(s) Severity scale (1-10): 0 Consistency: intermittent Improves with: none Worsens with: none Associated Symptoms: shortness of breath, other (Lightheaded) Treatments Prior to Arrival: none - Related Data Home Medications Medication Instructions Recorded Confirmed Levothyroxine Sodium [Synthroid] 88 mcg PO DAILY 01/07/16 09/17/22 Simvastatin [Zocor] 20 mg PO HS 01/07/16 09/17/22 Ubidecarenone [Co Q-10] 200 mg PO DAILY@1400 01/07/16 09/17/22 hydroCHLOROthiazide 25 mg PO DAILY 01/07/16 09/17/22 Losartan Potassium 100 mg PO DAILY 05/05/21 09/17/22 Zinc 50 mg PO DAILY@1400 05/05/21 09/17/22 atenoloL 25 mg PO BID 05/05/21 09/17/22 Aspirin EC [Ecotrin Low Dose] 81 mg PO HS 09/17/22 09/17/22 Cholecalciferol [Vitamin D3 (25 50 mcg PO DAILY@1400 09/17/22 09/17/22 Mcg = 1000 Iu)] Allergies Allergy/AdvReac Type Severity Reaction Status Date / Time glucose oxidase Allergy redness of Verified 09/17/22 21:28 [From Biotene Dry Mouth] face lactoperoxidase Allergy redness of Verified 09/17/22 21:28 [From Biotene Dry Mouth] face potassium thiocyanate Allergy redness of Verified 09/17/22 21:28 [From Biotene Dry Mouth] face shellfish derived Allergy Vomiting Verified 09/17/22 21:28 sulfamethoxazole Allergy Rash/Hives Verified 09/17/22 21:28 [From Bactrim] trimethoprim [From Bactrim] Allergy Rash/Hives Verified 09/17/22 21:28 niacin AdvReac redness to Verified 09/17/22 21:28 face otc dry mouth spray Allergy redness of Uncoded 09/17/22 21:28 face Review of Systems ROS Statement: Those systems with pertinent positive or pertinent negative responses have been documented in the HPI. ROS Other: All systems not noted in ROS Statement are negative. Constitutional: Reports: weakness. Denies: fever, chills Eyes: Denies: vision change Respiratory: Reports: dyspnea (Intermittent). Denies: cough, wheezes Cardiovascular: Reports: syncope (Lightheaded). Denies: chest pain, palpitations, edema Gastrointestinal: Denies: abdominal pain, vomiting, diarrhea, melena, he matochezia Genitourinary: Denies: dysuria, hematuria Musculoskeletal: Denies: back pain Skin: Denies: rash Neurological: Denies: headache, weakness, numbness Past Medical History Past Medical History: Hyperlipidemia, Hypertension, Thyroid Disorder Additional Past Medical History / Comment(s): abnormal vaginal bleeding History of Any Multi-Drug Resistant Organisms: None Reported Past Surgical History: Adenoidectomy, Tonsillectomy Additional Past Surgical History / Comment(s): nasal sx-bx done was neg, maris cataract-lens implants, bx rt breast/lumpectomy(was benign) Past Anesthesia/Blood Transfusion Reactions: No Reported Reaction Additional Past Anesthesia/Blood Transfusion Reaction / Comment(s): no blood transfusions Past Psychological History: No Psychological Hx Reported Smoking Status: Never smoker Past Alcohol Use History: None Reported Past Drug Use History: None Reported - Past Family History Father Family Medical History: Cancer Additional Family Medical History / Comment(s): cancer of the bowel, glaucoma Mother Family Medical History: Asthma Additional Family Medical History / Comment(s): at age 69, lung disease, mental health issues General Exam Limitations: no limitations General appearance: alert, in no apparent distress Head exam: Present: atraumatic, normocephalic Eye exam: Present: normal appearance. Absent: scleral icterus, conjunctival injection Neck exam: Present: normal inspection Respiratory exam: Present: normal lung sounds bilaterally. Absent: respiratory distress, wheezes, rales, rhonchi, stridor Cardiovascular Exam: Present: irregular rhythm, normal heart sounds. Absent: systolic murmur, diastolic murmur, rubs, gallop GI/Abdominal exam: Present: soft. Absent: distended, tenderness, guarding, rebound, rigid, mass Extremities exam: Present: normal inspection, normal capillary refill. Absent: pedal edema, calf tenderness Back exam: Present: normal inspection. Absent: CVA tenderness (R), CVA tenderness (L) Neurological exam: Present: alert Skin exam: Present: warm, dry, intact, normal color. Absent: rash Course Vital Signs 09/17/22 09/17/22 17:25 21:59 Temperature 98.8 F Pulse Rate 70 70 Respiratory 18 18 Rate Blood Pressure 186/86 165/95 O2 Sat by Pulse 96 96 Oximetry EKG Findings - EKG Results: EKG: interpreted by ERMD, normal axis, normal QRS, normal ST/T, no acute changes EKG shows: atrial fibrillation (With rate approximate 66 bpm) Medical Decision Making - Medical Decision Making This patient is an 82-year-old woman presenting with a constellation of symptoms have been somewhat intermittent over number days. She has noted her blood pressure is been running high. She has at times been lightheaded, there has been some occasional shortness of breath. The workup here does reveal that she appears to have new onset atrial fibrillation. Patient be admitted to have serial cardiac enzymes as well as cardiology consultation. - Lab Data Result diagrams: 09/17/22 21:16 09/17/22 21:16 Lab Results 09/17/22 09/17/22 09/17/22 Range/Units 21:16 21:16 21:16 WBC 7.2 (3.8-10.6) k/uL RBC 4.14 (3.80-5.40) m/uL Hgb 12.7 (11.4-16.0) gm/dL Hct 36.9 (34.0-46.0) % MCV 89.1 (80.0-100.0) fL MCH 30.6 (25.0-35.0) pg MCHC 34.3 (31.0-37.0) g/dL RDW 13.8 (11.5-15.5) % Plt Count 175 (150-450) k/uL MPV 8.5 Neutrophils % 76 % Lymphocytes % 13 % Monocytes % 5 % Eosinophils % 3 % Basophils % 0 % Neutrophils # 5.5 (1.3-7.7) k/uL Lymphocytes # 1.0 (1.0-4.8) k/uL Monocytes # 0.4 (0-1.0) k/uL Eosinophils # 0.2 (0-0.7) k/uL Basophils # 0.0 (0-0.2) k/uL PT 10.4 (9.0-12.0) sec INR 1.0 (<1.2) APTT 24.7 (22.0-30.0) sec Sodium 141 (137-145) mmol/L Potassium 3.7 (3.5-5.1) mmol/L Chloride 108 H (98-107) mmol/L Carbon Dioxide 23 (22-30) mmol/L Anion Gap 10 mmol/L BUN 22 H (7-17) mg/dL Creatinine 1.03 (0.52-1.04) mg/dL Est GFR (CKD-EPI)AfAm 59 (>60 ml/min/1.73 sqM) Est GFR (CKD-EPI)NonAf 51 (>60 ml/min/1.73 sqM) Glucose 100 H (74-99) mg/dL Calcium 10.0 (8.4-10.2) mg/dL Magnesium 1.7 (1.6-2.3) mg/dL Total Bilirubin 2.3 H (0.2-1.3) mg/dL AST 58 H (14-36) U/L ALT 44 H (4-34) U/L Alkaline Phosphatase 117 (38-126) U/L Troponin I (0.000-0.034) ng/mL Total Protein 7.1 (6.3-8.2) g/dL Albumin 4.2 (3.5-5.0) g/dL 09/17/22 Range/Units 21:16 WBC (3.8-10.6) k/uL RBC (3.80-5.40) m/uL Hgb (11.4-16.0) gm/dL Hct (34.0-46.0) % MCV (80.0-100.0) fL MCH (25.0-35.0) pg MCHC (31.0-37.0) g/dL RDW (11.5-15.5) % Plt Count (150-450) k/uL MPV Neutrophils % % Lymphocytes % % Monocytes % % Eosinophils % % Basophils % % Neutrophils # (1.3-7.7) k/uL Lymphocytes # (1.0-4.8) k/uL Monocytes # (0-1.0) k/uL Eosinophils # (0-0.7) k/uL Basophils # (0-0.2) k/uL PT (9.0-12.0) sec INR (<1.2) APTT (22.0-30.0) sec Sodium (137-145) mmol/L Potassium (3.5-5.1) mmol/L Chloride (98-107) mmol/L Carbon Dioxide (22-30) mmol/L Anion Gap mmol/L BUN (7-17) mg/dL Creatinine (0.52-1.04) mg/dL Est GFR (CKD-EPI)AfAm (>60 ml/min/1.73 sqM) Est GFR (CKD-EPI)NonAf (>60 ml/min/1.73 sqM) Glucose (74-99) mg/dL Calcium (8.4-10.2) mg/dL Magnesium (1.6-2.3) mg/dL Total Bilirubin (0.2-1.3) mg/dL AST (14-36) U/L ALT (4-34) U/L Alkaline Phosphatase (38-126) U/L Troponin I <0.012 (0.000-0.034) ng/mL Total Protein (6.3-8.2) g/dL Albumin (3.5-5.0) g/dL Disposition Clinical Impression: Palpitations, Atrial fibrillation, new onset Disposition: ADMITTED IP TO THIS HOSP Condition: Good Is patient prescribed a controlled substance at d/c from ED?: No
[2022-09-17 21:33] LABS: Basophils % (A) 0 %; Eosinophils # (A) 0.2 k/uL (0-0.7); Eosinophils % (A) 3 %; HCT 36.9 % (34.0-46.0); HGB 12.7 gm/dL (11.4-16.0); Lymphocytes % (A) 13 %; MCH 30.6 pg (25.0-35.0); MCHC 34.3 g/dL (31.0-37.0); MCV 89.1 fL (80.0-100.0); Mean Platelet Volume 8.5; Monocytes # (A) 0.4 k/uL (0-1.0); Monocytes % (A) 5 %; Neutrophils # (A) 5.5 k/uL (1.3-7.7); Neutrophils % (A) 76 %; Platelet Count 175 k/uL (150-450); RBC 4.14 m/uL (3.80-5.40); RDW 13.8 % (11.5-15.5); WBC 7.2 k/uL (3.8-10.6)
[2022-09-17 21:49] LABS: Albumin 4.2 g/dL (3.5-5.0); Magnesium 1.7 mg/dL (1.6-2.3); Potassium 3.7 mmol/L (3.5-5.1); Total Bilirubin 2.3 mg/dL (0.2-1.3); Total Protein 7.1 g/dL (6.3-8.2)
[2022-09-17 21:50] LABS: Partial Thromboplastin Time 24.7 sec (22.0-30.0); Prothrombin Time 10.4 sec (9.0-12.0)
--- NOTE | 2022-09-17 22:10 | XR ---
EXAMINATION TYPE: XR chest 2V DATE OF EXAM: 09/17/2022 COMPARISON: 05/04/2017 HISTORY: Chest pain TECHNIQUE: FINDINGS: There is no heart failure nor confluent pneumonic infiltrate. Costophrenic angles are clear . There are no hilar masses. There are chest leads. Thoracic aorta is atheromatous. There is some spu rring in the thoracic spine. IMPRESSION: No active cardiopulmonary disease. Normal heart.
[2022-09-17] MEDS ORDERED: NITROGLYCERIN SL TABS 0.4 MG TAB SUBLINGUAL PRN (22:27)
[2022-09-17] MEDS: ENOXAPARIN 100 MG/ML SYRINGE SQ SCH (23:46)
[2022-09-18] MEDS: SODIUM CHLORIDE 0.9% 1,000 ML IV SCH ×2 (00:05→20:02)
[2022-09-18] MEDS: LEVOTHYROXINE 88 MCG TAB PO SCH (06:10)
[2022-09-18] MEDS: LOSARTAN 50 MG TAB PO SCH (08:17)
[2022-09-18] MEDS: atenoloL 25 MG TAB PO SCH ×2 (08:17→19:51)
[2022-09-18] MEDS: hydroCHLOROthiazide 25 MG TAB PO SCH (08:17)
[2022-09-18] MEDS ORDERED: ASPIRIN 325 MG TAB PO SCH (09:00)
[2022-09-18 09:50] LABS: Chol/HDL Ratio 2.62 Ratio; LDL Cholesterol,Calculated 67.3 mg/dL (0.0-131.0); VLDL Calculation 19.94 mg/dL (5.00-40.00)
[2022-09-18] MEDS ORDERED: FUROSEMIDE 10 MG/ML 2 ML VIAL IV ONE (11:44)
--- NOTE | 2022-09-18 11:44 | P.CRDCN ---
History of Present Illness Consult date: 09/18/22 History of present illness: History of Present Illness: The patient is an 82-year-old female with known history of hypertension who presented because of elevated blood pressure, feeling dyspneic and not feeling well. In the emergency room she was noted to be in atrial fibrillation with controlled ventricular response. In 2020 she was in sinus mechanism and at that time she had a normal LV systolic function by echocardiography. The patient is not very active physically, has some dyspnea on exertion. She denies any chest discomfort. She has occasional palpitations but no significant dizziness on a regular basis and no syncope. She denies any clear PND or orthopnea. She was complaining of feet discomfort recently but that has improved, she has some discoloration at that time. She cannot recall that she has been diagnosed with atrial fibrillation in the past. She has a history of hypertension and hyperlipidemia, she is nondiabetic nonsmoker. Her [id number] score is 5. Medications: Aspirin once a day, atenolol 25 mg twice a day, Lipitor 10 mg iva y, levothyroxine, Zocor 20 mg daily,HCTZ 25 mg daily Review of Systems: Respiratory: She has dyspnea on exertion but no recent wheezing or cough GI: No nausea or vomiting . No history of peptic ulcer disease. No recent GI bleed. : No hematuria or dysuria. Nervous System: No stroke or seizure. Physical Examination: 82-year-old female, alert and oriented no apparent distress ,Blood pressure 147 /70, Heart rate 70 Head: Normocephalic. Eyes: Sclerae nonicteric. Neck: Good carotid upstroke, no bruit, no jugular venous distention. Lungs: Clear to auscultation. Heart: Irregular rate and rhythm, S1-S2, no S3, no rub. Systolic ejection murmur. Abdomen: Soft nontender, positive bowel sounds no organomegaly. Extremities: Trace edema, intact distal pulses. Labs: Troponin less than 0.012 for 3 sample, BUN 22, creatinine 1.03, NT proBNP 2230. Potassium 3.7, hemoglobin 12.7. TSH 1.9. Chest x-ray with no acute infiltrate EKG: Atrial fibrillation with nonspecific ST-T wave changes Impression: 1. Atrial fibrillation recent since 2020, rate controlled probably because of the beta ellen 2. Hypertension 3. Elevated NT proBNP with no symptoms of CHF by physical examination or chest x-ray 4. History of hyperlipidemia Plan: 1. Obtain an echocardiogram with Doppler 2. Initiate treatment with anticoagulation 3. IV diuretics 1 4. Follow renal functions 5. Depending on her progress further recommendations will be made, thank you for this consult we will follow with you. Past Medical History Past Medical History: Hyperlipidemia, Hypertension, Thyroid Disorder Additional Past Medical History / Comment(s): abnormal vaginal bleeding History of Any Multi-Drug Resistant Organisms: None Reported Past Surgical History: Adenoidectomy, Tonsillectomy Additional Past Surgical History / Comment(s): nasal sx-bx done was neg, maris cataract-lens implants, bx rt breast/lumpectomy(was benign) Past Anesthesia/Blood Transfusion Reactions: No Reported Reaction Additional Past Anesthesia/Blood Transfusion Reaction / Comment(s): no blood transfusions Past Psychological History: No Psychological Hx Reported Smoking Status: Never smoker Past Alcohol Use History: None Reported Past Drug Use History: None Reported - Past Family History Father Family Medical History: Cancer Additional Family Medical History / Comment(s): cancer of the bowel, glaucoma Mother Family Medical History: Asthma Additional Family Medical History / Comment(s): at age 69, lung disease, mental health issues Medications and Allergies Home Medications Medication Instructions Recorded Confirmed Type Levothyroxine Sodium [Synthroid] 88 mcg PO DAILY 01/07/16 09/17/22 History Simvastatin [Zocor] 20 mg PO HS 01/07/16 09/17/22 History Ubidecarenone [Co Q-10] 200 mg PO DAILY@1400 01/07/16 09/17/22 History hydroCHLOROthiazide 25 mg PO DAILY 01/07/16 09/17/22 History Losartan Potassium 100 mg PO DAILY 05/05/21 09/17/22 History Zinc 50 mg PO DAILY@1400 05/05/21 09/17/22 History atenoloL 25 mg PO BID 05/05/21 09/17/22 History Aspirin EC [Ecotrin Low Dose] 81 mg PO HS 09/17/22 09/17/22 History Cholecalciferol [Vitamin D3 (25 50 mcg PO DAILY@1400 09/17/22 09/17/22 History Mcg = 1000 Iu)] Allergies Allergy/AdvReac Type Severity Reaction Status Date / Time glucose oxidase Allergy redness of Verified 09/17/22 21:28 [From Biotene Dry Mouth] face lactoperoxidase Allergy redness of Verified 09/17/22 21:28 [From Biotene Dry Mouth] face potassium thiocyanate Allergy redness of Verified 09/17/22 21:28 [From Biotene Dry Mouth] face shellfish derived Allergy Vomiting Verified 09/17/22 21:28 sulfamethoxazole Allergy Rash/Hives Verified 09/17/22 21:28 [From Bactrim] trimethoprim [From Bactrim] Allergy Rash/Hives Verified 09/17/22 21:28 niacin AdvReac redness to Verified 09/17/22 21:28 face otc dry mouth spray Allergy redness of Uncoded 09/17/22 21:28 face Physical Exam Vitals: Vital Signs Temp Pulse Resp BP Pulse Ox 09/18/22 10:57 97.5 F L 82 18 155/64 97 09/18/22 06:12 62 18 147/79 95 09/18/22 03:18 61 18 135/85 92 L 09/18/22 01:01 62 18 154/75 93 L 09/17/22 21:59 70 18 165/95 96 09/17/22 17:25 98.8 F 70 18 186/86 96 Intake and Output 09/17/22 09/18/22 09/18/22 22:59 06:59 14:59 Other: Weight 106.141 kg Results 09/17/22 21:16 09/17/22 21:16 Cardiac Enzymes 09/17/22 09/17/22 09/18/22 Range/Units 21:16 21:16 00:31 AST 58 H (14-36) U/L Troponin I <0.012 <0.012 (0.000-0.034) ng/mL 09/18/22 Range/Units 03:23 AST (14-36) U/L Troponin I <0.012 (0.000-0.034) ng/mL Coagulation 09/17/22 Range/Units 21:16 PT 10.4 (9.0-12.0) sec APTT 24.7 (22.0-30.0) sec Lipids 09/18/22 Range/Units 03:23 Triglycerides 99.70 (0.00-149.00) mg/dL Cholesterol 141.00 (0.00-200.00) mg/dL HDL Cholesterol 53.80 (40.00-60.00) mg/dL Cholesterol/HDL Ratio 2.62 Ratio CBC 09/17/22 Range/Units 21:16 WBC 7.2 (3.8-10.6) k/uL RBC 4.14 (3.80-5.40) m/uL Hgb 12.7 (11.4-16.0) gm/dL Hct 36.9 (34.0-46.0) % Plt Count 175 (150-450) k/uL Comprehensive Metabolic Panel 09/17/22 Range/Units 21:16 Sodium 141 (137-145) mmol/L Potassium 3.7 (3.5-5.1) mmol/L Chloride 108 H (98-107) mmol/L Carbon Dioxide 23 (22-30) mmol/L BUN 22 H (7-17) mg/dL Creatinine 1.03 (0.52-1.04) mg/dL Glucose 100 H (74-99) mg/dL Calcium 10.0 (8.4-10.2) mg/dL AST 58 H (14-36) U/L ALT 44 H (4-34) U/L Alkaline Phosphatase 117 (38-126) U/L Total Protein 7.1 (6.3-8.2) g/dL Albumin 4.2 (3.5-5.0) g/dL Current Medications Generic Name Dose Route Start Last Admin Trade Name Freq PRN Reason Stop Dose Admin Aspirin 325 mg 09/18/22 09:00 09/18/22 08:17 Aspirin 325 Mg Tab PO 325 mg DAILY SONNY Administration Atenolol 25 mg 09/18/22 09:00 09/18/22 08:17 Atenolol 25 Mg Tab PO 25 mg BID SONNY Administration Atorvastatin Calcium 10 mg 09/18/22 21:00 Atorvastatin 10 Mg Tab PO HS [facility] Cholecalciferol 50 mcg 09/18/22 14:00 Cholecalciferol 25 Mcg (1000 Iu) Tablet PO DAILY@1400 [facility] Enoxaparin Sodium 100 mg 09/17/22 23:00 09/17/22 23:46 Enoxaparin 100 Mg/Ml Syringe SQ 100 mg Q12H SONNY Administration Hydrochlorothiazide 25 mg 09/18/22 09:00 09/18/22 08:17 Hydrochlorothiazide 25 Mg Tab PO 25 mg DAILY SONNY Administration Sodium Chloride 1,000 mls @ 20 mls/hr 09/17/22 22:30 09/18/22 00:05 Saline 0.9% IV 20 mls/hr .Q24H SONNY Administration Levothyroxine Sodium 88 mcg 09/18/22 06:30 09/18/22 06:10 Levothyroxine 88 Mcg Tab PO 88 mcg DAILY@0630 SONNY Administration Losartan Potassium 100 mg 09/18/22 09:00 09/18/22 08:17 Losartan 50 Mg Tab PO 100 mg DAILY SONNY Administration Nitroglycerin 0.4 mg 09/17/22 22:27 Nitroglycerin Sl Tabs 0.4 Mg Tab SUBLINGUAL Q5M PRN Chest Pain Zinc Sulfate 220 mg 09/18/22 14:00 Zinc Sulfate 220 Mg Cap PO DAILY@1400 SONNY Intake and Output 09/17/22 09/18/22 09/18/22 22:59 06:59 14:59 Other: Weight 106.141 kg 09/17/22 21:16 09/17/22 21:16
[2022-09-18] MEDS: ENOXAPARIN 100 MG/ML SYRINGE SQ SCH (12:19)
[2022-09-18] MEDS: APIXABAN 5 MG TAB PO SCH ×2 (12:28→19:51)
[2022-09-18] MEDS: CHOLECALCIFEROL 25 MCG (1000 IU) TABLET PO SCH (13:30)
[2022-09-18] MEDS: ZINC SULFATE 220 MG CAP PO SCH (13:30)
[2022-09-18] MEDS ORDERED: NON FORMULARY DRUG (Ubidecarenone [Co Q-10] 100 MG Capsule) PO SCH (14:00)
--- NOTE | 2022-09-18 14:12 | P.HPIM ---
History of Present Illness H&P Date: 09/18/22 Chief Complaint: Chronic A. fib with CVR This is an 82-year-old female with past medical history of hypertension, hyperlipidemia, hypothyroidism, atrial fibrillation since 2020, presented to the ER with hypertension, palpitations, accompanied by shortness of breath-exertional dyspnea with ambulating to the mailbox,-mild lightheadedness. Denies dizziness or focal deficits .denies syncope Denies chest pain, reports "flutter sensation", accompanied by blood pressure that continued to climb from 180s to 200s systolic with her rechecks. Blood pressure on admission 186/86, heart rate 70. Denies nausea or vomiting, reports has chronic loose stools.Denies abdominal pain. EKG reported atrial fibrillation,Troponins negative 3, Chest x-ray reporting non acute. Hemoglobin 12.7, , potassium 3.7 creatinine 1.03, proBNP 2230. Review of Systems ROS Statement: Those systems with pertinent positive or pertinent negative responses have been documented in the HPI. ROS Other: All systems not noted in ROS Statement are negative. Past Medical History Past Medical History: Hyperlipidemia, Hypertension, Thyroid Disorder Additional Past Medical History / Comment(s): abnormal vaginal bleeding History of Any Multi-Drug Resistant Organisms: None Reported Past Surgical History: Adenoidectomy, Tonsillectomy Additional Past Surgical History / Comment(s): nasal sx-bx done was neg, maris cataract-lens implants, bx rt breast/lumpectomy(was benign) Past Anesthesia/Blood Transfusion Reactions: No Reported Reaction Additional Past Anesthesia/Blood Transfusion Reaction / Comment(s): no blood transfusions Past Psychological History: No Psychological Hx Reported Smoking Status: Never smoker Past Alcohol Use History: None Reported Past Drug Use History: None Reported - Past Family History Father Family Medical History: Cancer Additional Family Medical History / Comment(s): cancer of the bowel, glaucoma Mother Family Medical History: Asthma Additional Family Medical History / Comment(s): at age 69, lung disease, mental health issues Medications and Allergies Home Medications Medication Instructions Recorded Confirmed Type Levothyroxine Sodium [Synthroid] 88 mcg PO DAILY 01/07/16 09/17/22 History Simvastatin [Zocor] 20 mg PO HS 01/07/16 09/17/22 History Ubidecarenone [Co Q-10] 200 mg PO DAILY@1400 01/07/16 09/17/22 History hydroCHLOROthiazide 25 mg PO DAILY 01/07/16 09/17/22 History Losartan Potassium 100 mg PO DAILY 05/05/21 09/17/22 History Zinc 50 mg PO DAILY@1400 05/05/21 09/17/22 History atenoloL 25 mg PO BID 05/05/21 09/17/22 History Aspirin EC [Ecotrin Low Dose] 81 mg PO HS 09/17/22 09/17/22 History Cholecalciferol [Vitamin D3 (25 50 mcg PO DAILY@1400 09/17/22 09/17/22 History Mcg = 1000 Iu)] Allergies Allergy/AdvReac Type Severity Reaction Status Date / Time glucose oxidase Allergy redness of Verified 09/17/22 21:28 [From Biotene Dry Mouth] face lactoperoxidase Allergy redness of Verified 09/17/22 21:28 [From Biotene Dry Mouth] face potassium thiocyanate Allergy redness of Verified 09/17/22 21:28 [From Biotene Dry Mouth] face shellfish derived Allergy Vomiting Verified 09/17/22 21:28 sulfamethoxazole Allergy Rash/Hives Verified 09/17/22 21:28 [From Bactrim] trimethoprim [From Bactrim] Allergy Rash/Hives Verified 09/17/22 21:28 niacin AdvReac redness to Verified 09/17/22 21:28 face otc dry mouth spray Allergy redness of Uncoded 09/17/22 21:28 face Physical Exam Vitals: Vital Signs Temp Pulse Resp BP Pulse Ox 09/18/22 10:57 97.5 F L 82 18 155/64 97 09/18/22 06:12 62 18 147/79 95 09/18/22 03:18 61 18 135/85 92 L 09/18/22 01:01 62 18 154/75 93 L 09/17/22 21:59 70 18 165/95 96 09/17/22 17:25 98.8 F 70 18 186/86 96 Intake and Output 09/17/22 09/18/22 09/18/22 22:59 06:59 14:59 Other: Weight 106.141 kg PHYSICAL EXAMINATION: GENERAL: The patient is alert and oriented x3, not in any acute distress. Well developed, well nourished. HEENT: Pupils are round and equally reacting to light. EOMI. No scleral icterus. No conjunctival pallor. Normocephalic, atraumatic. No pharyngeal erythema. No thyromegaly. CARDIOVASCULAR: S1 and S2 present. Irregular, Systolic murmur, no rubs, or gallops. PULMONARY: Chest is clear to auscultation, no wheezing or crackles. ABDOMEN: Soft, nontender, nondistended, normoactive bowel sounds. No palpable organomegaly. MUSCULOSKELETAL: No joint swelling or deformity. EXTREMITIES: No cyanosis, clubbing. Trace pedal edema. NEUROLOGICAL: Gross neurological examination did not reveal any focal deficits. SKIN: Warm and dry, No rashes. Results CBC & Chem 7: 09/17/22 21:16 09/17/22 21:16 Labs: Abnormal Lab Results - Last 24 Hours (Table) 09/17/22 Range/Units 21:16 Chloride 108 H (98-107) mmol/L BUN 22 H (7-17) mg/dL Glucose 100 H (74-99) mg/dL Total Bilirubin 2.3 H (0.2-1.3) mg/dL AST 58 H (14-36) U/L ALT 44 H (4-34) U/L Assessment and Plan Assessment: Chronic A. fib with CVR, recently diagnosed 2020 as per cardiology Elevated proBNP, no CHF as per cardiology Chronic kidney failure, stage III, baseline creatinine 1.0 Hypertension Hyperlipidemia Hypothyroidism Anxiety Depression, 3 years ago Plan: Continue on current medication regime ,monitoring and symptomatic treatment. Echo pending. Anticoagulation with Eliquis. Cardiology consult in place, recommendations noted and appreciated. Lexapro added to med regimen. The impression and plan of care has been dictated as directed. : I performed a history and examination of this patient, discussed the same with the dictator. I agree with the dictator's note ,documented as a scribe. Any additional findings or plans will be noted.
[2022-09-18] MEDS: ESCITALOPRAM 5 MG TAB PO SCH (15:38)
[2022-09-18] MEDS: ATORVASTATIN 10 MG TAB PO SCH (19:51)
[2022-09-18] MEDS ORDERED: amLODIPine 5 MG TAB PO STA (19:57)
[2022-09-18] MEDS ORDERED: ALPRAZolam 0.25 MG TAB PO STA (20:26)
[2022-09-18] MEDS ORDERED: hydrALAZINE HCL 20 MG/ML 1 ML VIAL IVP STA (20:27)
[2022-09-18] MEDS: ACETAMINOPHEN TAB 325 MG TAB PO PRN (20:35)
[2022-09-19] MEDS: LEVOTHYROXINE 88 MCG TAB PO SCH (05:35)
[2022-09-19] MEDS: ACETAMINOPHEN TAB 325 MG TAB PO PRN (05:56)
[2022-09-19] MEDS: LOSARTAN 50 MG TAB PO SCH (08:58)
[2022-09-19] MEDS: hydroCHLOROthiazide 25 MG TAB PO SCH (08:58)
[2022-09-19] MEDS: APIXABAN 5 MG TAB PO SCH ×2 (08:58→20:37)
[2022-09-19] MEDS: atenoloL 25 MG TAB PO SCH ×2 (08:58→20:37)
[2022-09-19] MEDS: ESCITALOPRAM 5 MG TAB PO SCH (08:58)
[2022-09-19 09:11] LABS: Calcium 9.7 mg/dL (8.4-10.2); Potassium 3.1 mmol/L (3.5-5.1)
[2022-09-19] MEDS: POTASSIUM CHLORIDE ER 20 MEQ TAB.ER PO SCH ×3 (13:00→15:43)
--- NOTE | 2022-09-19 14:17 | P.PN ---
Subjective Progress Note Date: 09/19/22 The patient is an 82-year-old female with known history of hypertension who presented because of elevated blood pressure, feeling dyspneic and not feeling well. In the emergency room she was noted to be in atrial fibrillation with controlled ventricular response. In 2020 she was in sinus mechanism and at that time she had a normal LV systolic function by echocardiography. The patient is not very active physically, has some dyspnea on exertion. She denies any chest discomfort. She has occasional palpitations but no significant dizziness on a regular basis and no syncope. She denies any clear PND or orthopnea. She was complaining of feet discomfort recently but that has improved, she has some discoloration at that time. She cannot recall that she has been diagnosed with atrial fibrillation in the past. She has a history of hypertension and hyperlipidemia, she is nondiabetic nonsmoker. Her [id number] score is 5. Medications: Aspirin once a day, atenolol 25 mg twice a day, Lipitor 10 mg daily, levothyroxine, Zocor 20 mg daily,HCTZ 25 mg daily 09/19/2022 The patient was seen and examined resting comfortably in bed. Her blood pressure has been elevated. She is overall feeling well without any dyspnea. She's had no chest discomfort or palpitations. She is remaining in true fib rillation with a controlled ventricular response. She is anticoagulated. Objective - Vital Signs Vital signs: Vital Signs Temp 97.6 F 09/19/22 12:00 Pulse 82 09/19/22 12:00 Resp 18 09/19/22 12:00 BP 179/89 09/19/22 12:00 Pulse Ox 94 L 09/19/22 12:00 FiO2 Intake & Output 09/18/22 09/19/22 09/19/22 18:59 06:59 18:59 Intake Total 480 Balance 480 Weight 106.141 kg Intake: Oral 480 Other: Voiding Method Toilet # Voids 2 1 - Exam Head: Normocephalic. Eyes: Sclerae nonicteric. Neck: Good carotid upstroke, no bruit, no jugular venous distention. Lungs: Clear to auscultation. Heart: Irregular rate and rhythm, S1-S2, no S3, no rub. Systolic ejection murmur. Abdomen: Soft nontender, positive bowel sounds no organomegaly. Extremities: Trace edema, intact distal pulses. - Labs CBC & Chem 7: 09/17/22 21:16 09/19/22 08:35 Labs: Abnormal Lab Results - Last 24 Hours (Table) 09/19/22 Range/Units 08:35 Potassium 3.1 L (3.5-5.1) mmol/L BUN 21 H (7-17) mg/dL Glucose 148 H (74-99) mg/dL Assessment and Plan Assessment: 1. Atrial fibrillation recent since 2020, rate controlled probably because of the beta ellen 2. Hypertension 3. Elevated NT proBNP with no symptoms of CHF by physical examination or chest x-ray 4. History of hyperlipidemia Plan: From cardiology's perspective we will add amlodipine for blood pressure control. Awaiting echocardiogram results. Heart rate is controlled with A. fib and she is anticoagulated. Anticipate the patient will be discharged home once her blood pressure is under adequate control. GENERATION ENGINEER note has been reviewed, I agree with a documented findings and plan of care. Patient was seen and examined.
[2022-09-19] MEDS: CHOLECALCIFEROL 25 MCG (1000 IU) TABLET PO SCH (15:27)
[2022-09-19] MEDS: amLODIPine 5 MG TAB PO SCH (15:27)
[2022-09-19] MEDS: ZINC SULFATE 220 MG CAP PO SCH (15:28)
--- NOTE | 2022-09-19 15:51 | P.PN ---
Subjective Progress Note Date: 09/19/22 This is a 82-year-old female who presents to the hospital with concern for atrial fibrillation with a rapid ventricular rate, she has been diagnosed with A. fib since 2020 and has been maintained on a beta ellen for rate control. She had an elevated proBNP this admission without much evidence for acute CHF although she was given a dose of IV Lasix 1. Her echocardiogram is currently pending. Her labs today show a sodium level of 139, potassium did drop to 3.1 which we will supplement with oral medication, BUN is 21, creatinine is 1.00 which is stable from yesterday, blood glucose is slightly elevated at 148. Her proBNP was elevated yesterday 20-30, troponin was negative 3 she did have lipid panel completed. Her TSH is 1.970. Currently afebrile, heart rate 61, blood pressure is 158/82, 95% on room air. Currently maintained on eliquis for anticoagulation, she is also on losartan 100 daily for blood pressure which was started yesterday, continues on atenolol 25 mg twice a day. She is currently maintained sinus mechanism with a heart rate in the 60s. Shortness of breath has improved. Possible discharge later today or tomorrow if echocardiogram has been completed and reviewed by cardiology and patient's blood pressure improves. Patient currently does not have prescription coverage. Review of Systems Constitutional: Denied any fatigue denied any fever. Cardio vascular: denied any chest pain, palpitations Gastrointestinal: denied any nausea, vomiting, diarrhea Pulmonary: Denied any shortness of breath cough Neurologic denied any new focal deficits All inpatient medications were reviewed and appropriate changes in these medications as dictated in the interval history and assessment and plan. REVIEW OF SYSTEMS: CONSTITUTIONAL: No fever, no malaise, no fatigue. HEENT: No recent visual problems or hearing problems. Denied any sore throat. CARDIOVASCULAR: No chest pain, orthopnea, PND, no palpitations, no syncope. PULMONARY: No shortness of breath, no cough, no hemoptysis. GASTROINTESTINAL: No diarrhea, no nausea, no vomiting, no abdominal pain. NEUROLOGICAL: No headaches, no weakness, no numbness. HEMATOLOGICAL: Denies any bleeding or petechiae. GENITOURINARY: Denies any burning micturition, frequency, or urgency. MUSCULOSKELETAL/RHEUMATOLOGICAL: Denies any joint pain, swelling, or any muscle pain. ENDOCRINE: Denies any polyuria or polydipsia. The rest of the 14-point review of systems is negative. Assessment and Plan Assessment Chronic A. fib with CVR, recently diagnosed 2020 as per cardiology Elevated proBNP, no CHF as per cardiology Chronic kidney failure, stage III, baseline creatinine 1.0 Hypertension Hyperlipidemia Hypothyroidism Anxiety Depression, 3 years ago GI prophylaxis DVT prophylaxis anticoagulated with eliquis Full Code Plan Continue atenolol, losartan, hydrochlorothiazide has been started on amlodipine today Echocardiogram currently pending Eliquis has been started patient does not have prescription coverage will receive first month free and follow up with cardiology for further recommendati ons on discharge Optimize blood pressure control Escitalopram has been started for anxiety patient is educated on onset and will not feel the full benefits of medication for 4 to 6 weeks. Anxiety could be contributing to elevated blood pressure. D/C once BP improves, echo resulted and cleared by cardiology The impression and plan of care has been dictated by Jojo Aranda, Nurse Practitioner as directed. Dr. Lyly MD I have performed a history and physical examination and medical decision making of this patient, discussed the same with the dictator, and agree with the dictators assessment and plan as written, documented as a scribe. Based on total visit time, I have performed more than 50% of this visit. Objective - Vital Signs Vital signs: Vital Signs Temp 97.7 F 09/19/22 07:58 Pulse 61 09/19/22 07:58 Resp 18 09/19/22 07:58 BP 158/82 09/19/22 07:58 Pulse Ox 95 09/19/22 07:58 FiO2 Intake & Output 09/18/22 09/19/22 09/19/22 18:59 06:59 18:59 Intake Total 180 Balance 180 Weight 106.141 kg Intake: Oral 180 Other: Voiding Method Toilet # Voids 2 - Labs CBC & Chem 7: 09/17/22 21:16 09/19/22 08:35 Labs: Abnormal Lab Results - Last 24 Hours (Table) 09/19/22 Range/Units 08:35 Potassium 3.1 L (3.5-5.1) mmol/L BUN 21 H (7-17) mg/dL Glucose 148 H (74-99) mg/dL Assessment and Plan Time with Patient: Less than 30
--- NOTE | 2022-09-19 18:17 | CA ---
Transthoracic Echo Report Name: Loretta Butcher Age: 82 Gender: F : 1940 Exam Date: 09/19/2022 09:11 Exam Location: [facility] Ht (in): 65 Wt (lb): 234 Ordering Physician: Lela Griggs Attending/Referring Phys: [id number], [facility] Librarian Mimi Pascal RDCS Procedure CPT: Indications: New Onset Atrial Fibrillation Cardiac Hx: Technical Quality: Contrast 1: Total Dose (mL): Contrast 2: Total Dose (mL): MEASUREMENTS (Male / Female) Normal Values 2D ECHO LV Diastolic Diameter PLAX 5.0 cm 4.2 - 5.9 / 3.9 - 5.3 cm LV Systolic Diameter PLAX 3.4 cm IVS Diastolic Thickness 1.2 cm 0.6 - 1.0 / 0.6 - 0.9 cm LVPW Diastolic Thickness 1.5 cm 0.6 - 1.0 / 0.6 - 0.9 cm LV Relative Wall Thickness 0.5 RV Internal Dim ED PLAX 2.7 cm LA Systolic Diameter LX 4.7 cm 3.0 - 4.0 / 2.7 - 3.8 cm LA Volume 78.7 cm??? 18 - 58 / 22 - 52 cm??? M-MODE Aortic Root Diameter MM 2.9 cm LA Systolic Diameter MM 5.1 cm LA Ao Ratio MM 1.8 MV E Point Septal Separation 0.7 cm AV Cusp Separation MM 1.6 cm DOPPLER AV Peak Velocity 158.0 cm/s AV Peak Gradient 10.0 mmHg AI Peak Velocity 434.8 cm/s AI Peak Gradient 75.6 mmHg AI Pressure Half Time 592.4 ms MV Deceleration Time 144.4 ms MV E' Velocity 5.3 cm/s TR Peak Velocity 256.4 cm/s TR Peak Gradient 26.3 mmHg Right Ventricular Systolic Press 31.3 mmHg FINDINGS Left Ventricle Mildly increased septal wall thickness.left ventricular cavity size normal. Left ventricular ejection fraction is estimated at 55-60 %. Right Ventricle Normal right ventricular size and function. Right ventricular systolic pressure within normal limits. Right Atrium Normal right atrial size. Left Atrium Severely increased left atrial diameter. Severely increased left atrial volume. Mildly increased left atrial area. Mitral Valve Structurally normal mitral valve. Mild mitral regurgitation. Mitral annulus calcification Aortic Valve Trileaflet aortic valve. Mild aortic regurgitation. Tricuspid Valve Structurally normal tricuspid valve. Mild tricuspid regurgitation. Pulmonic Valve Structurally normal pulmonic valve. Pericardium Normal pericardium. Aorta Normal size aortic root and proximal ascending aorta. CONCLUSIONS 1. Normal size and systolic function 2. Mild mitral, aortic and tricuspid regurgitation 3. No pericardial effusion Previewed by: Dr. Paulie Iverson MD (Electronically Signed) Final Date: 19 September 2022 18:15
[2022-09-19] MEDS: ATORVASTATIN 10 MG TAB PO SCH (20:37)
[2022-09-19] MEDS: SODIUM CHLORIDE 0.9% 1,000 ML IV SCH (23:41)
[2022-09-20] MEDS: LEVOTHYROXINE 88 MCG TAB PO SCH (06:08)
[2022-09-20] MEDS: ESCITALOPRAM 5 MG TAB PO SCH (08:31)
[2022-09-20] MEDS: atenoloL 25 MG TAB PO SCH (08:31)
[2022-09-20] MEDS: amLODIPine 5 MG TAB PO SCH (08:31)
[2022-09-20] MEDS: APIXABAN 5 MG TAB PO SCH ×2 (08:31→15:02)
[2022-09-20] MEDS: LOSARTAN 50 MG TAB PO SCH (08:32)
[2022-09-20 11:34] VITALS: BP 131/80; RESP 12; TEMP 98
[2022-09-20 13:55] VITALS: PULSE 78
--- NOTE | 2022-09-20 14:13 | P.PN ---
Subjective Progress Note Date: 09/20/22 The patient is an 82-year-old female with known history of hypertension who presented because of elevated blood pressure, feeling dyspneic and not feeling well. In the emergency room she was noted to be in atrial fibrillation with controlled ventricular response. In 2020 she was in sinus mechanism and at that time she had a normal LV systolic function by echocardiography. The patient is not very active physically, has some dyspnea on exertion. She denies any chest discomfort. She has occasional palpitations but no significant dizziness on a regular basis and no syncope. She denies any clear PND or orthopnea. She was complaining of feet discomfort recently but that has improved, she has some discoloration at that time. She cannot recall that she has been diagnosed with atrial fibrillation in the past. She has a history of hypertension and hyperlipidemia, she is nondiabetic nonsmoker. Her [id number] score is 5. Medications: Aspirin once a day, atenolol 25 mg twice a day, Lipitor 10 mg daily, levothyroxine, Zocor 20 mg daily,HCTZ 25 mg daily 09/19/2022 The patient was seen and examined resting comfortably in bed. Her blood pressure has been elevated. She is overall feeling well without any dyspnea. She's had no chest discomfort or palpitations. She is remaining in true fib rillation with a controlled ventricular response. She is anticoagulated. 09/20/2022 Patient was seen and examined resting comfortably sitting up beside the bed. She denies any complaints of chest discomfort, palpitations or dizziness. She has no complaints of shortness of breath. She is tolerating current medications. She continues to be in atrial fibrillation with a controlled ventricular response. Echocardiogram with Doppler study showed normal LV systolic function with mild MR, AR and TR. Objective - Vital Signs Vital signs: Vital Signs Temp 98.0 F 09/20/22 11:33 Pulse 78 09/20/22 13:54 Resp 12 09/20/22 11:33 BP 131/80 09/20/22 11:33 Pulse Ox 98 09/20/22 11:33 FiO2 Intake & Output 09/19/22 09/20/22 09/20/22 18:59 06:59 18:59 Intake Total 660 580 Balance 660 580 Intake: Oral 660 580 Other: Voiding Method Toilet # Voids 1 1 - Exam Head: Normocephalic. Eyes: Sclerae nonicteric. Neck: Good carotid upstroke, no bruit, no jugular venous distention. Lungs: Clear to auscultation. Heart: Irregular rate and rhythm, S1-S2, no S3, no rub. Systolic ejection murmur. Abdomen: Soft nontender, positive bowel sounds no organomegaly. Extremities: Trace edema, intact distal pulses. - Labs CBC & Chem 7: 09/17/22 21:16 09/20/22 08:40 Assessment and Plan Assessment: 1. Atrial fibrillation recent since 2020, rate controlled probably because of the beta ellen 2. Hypertension 3. Elevated NT proBNP with no symptoms of CHF by physical examination or chest x-ray 4. History of hyperlipidemia Plan: From cardiology's perspective medications were reviewed and will continue the same. Blood pressure is better controlled. Heart rate is controlled with A. fib and she is anticoagulated. Patient may be discharged home and follow-up as an outpatient. PAYMENT ANALYST note has been reviewed, I agree with a documented findings and plan of care. Patient was seen and examined.
[2022-09-20] MEDS: CHOLECALCIFEROL 25 MCG (1000 IU) TABLET PO SCH (15:02)
[2022-09-20] MEDS: ZINC SULFATE 220 MG CAP PO SCH (15:02)
--- NOTE | 2022-09-22 01:45 | P.DS ---
Providers Date of admission: 09/17/22 22:27 Attending physician: Lei Carter MD Consults: 09/17/22 22:27 Consult Physician Routine Consulting Provider: Robert Whalen Consult Reason/Comments: New-onset atrial fibrillation Do you want consulting provider notified?: Yes Primary care physician: Samira Roach Hospital Course: Final Diagnosis Chronic A. fib with CVR, recently diagnosed 2020 as per cardiology started on anticoagulation with eliquis Elevated proBNP, no CHF as per cardiology Chronic kidney failure, stage III, baseline creatinine 1.0 Hypertension Hyperlipidemia Hypothyroidism Anxiety Depression, 3 years ago Full Code Discharge Disposition Patient is stable for discharge home. She has been started on eliquis for anticoagulation. Heart rate has been controlled currently maintaining atrial fibrillation. Cardiology has review echocardiogram. Blood pressure has improved to 130s systolic on increased dosing. She will follow up with primary care and cardiology on discharge. Recommend to repeat labs in 2 to 3 days. Recommend to take over the counter potassium supplement. Patient is given paper scripts as she does not have prescription coverage currently. She is signing up for a reduced cost medication program through [facility]. She is also given a 30 day free coupon for eliquis. Cardiology will follow up with patient on discharge. Hospital Course This is an 82-year-old female who follows with Samira Roach outpatient, with past medical history of hypertension, hyperlipidemia, hypothyroidism, atrial fibrillation since 2020, presented to the ER with hypertension, palpitations, accompanied by shortness of breath-exertional dyspnea with ambulating to the mailbox,-mild lightheadedness. Denies dizziness or focal deficits .denies syncope Denies chest pain, reports "flutter sensation", accompanied by blood pressure that continued to climb from 180s to 200s systolic with her rechecks. Blood pressure on admission 186/86, heart rate 70. Denies nausea or vomiting, reports has chronic loose stools.Denies abdominal pain. EKG reported atrial fibrillation,Troponins negative 3, Chest x-ray reporting non acute. Hemoglobin 12.7, , potassium 3.7 creatinine 1.03, proBNP 2230. Her TSH is 1.970. She had an elevated proBNP this admission without much evidence for acute CHF although she was given a dose of IV Lasix 1. Her echocardiogram reveals normal size and systolic function. There is mild mitral, aortic, and tricuspid regurgitation. No pericardial effusion. Initiated on eliquis for anticoagulation, she is also on losartan 100 daily for blood pressure which was started yesterday, continues on atenolol 25 mg twice a day. Amlodipine 5 mg daily added as pressures continued to remain elevated in the 160s systolic. She is currently maintained atrial fibrillation with a heart rate in the 60s. Shortness of breath has improved. She does report symptoms of anxiety and has been started on daily lexapro. Cleared for discharge by cardiology. 09/20/2022 Patient is evaluated today sitting up in room. She currently denies chest pain, denies shortness of breath. No acute events overnight. She is anxious for discharge home today. Blood pressure has improved to 131/80, heart rate 78, afebrile, on room air. Lungs are clear, S1 S2 auscultated, irregular rate and rhythm. Normoactive bowels with no reports of nausea vomiting or diarrhea this admission. She is alert x 3, focal neurological exam is negative. She will be discharged home today with the above mentioned recommendations. Total time taken in discharge planning greater than 35 minutes. Most of the time spent on direct patient education and discussing medication cost and options. Please see medication reconciliation for a list of current medication. Thank you for allowing us to participate in the care of this patient. The impression and plan of care has been dictated by Jojo Aranda, Nurse Practitioner as directed. Dr. Lyly MD I have performed a history and physical examination and medical decision making of this patient, discussed the same with the dictator, and agree with the dictators assessment and plan as written, documented as a scribe. Based on total visit time, I have performed more than 50% of this visit. Patient Condition at Discharge: Stable Plan - Discharge Summary Discharge Rx Participant: No New Discharge Prescriptions: New Escitalopram [Lexapro] 5 mg PO DAILY #30 tab amLODIPine [Norvasc] 5 mg PO DAILY #30 tab Apixaban [Eliquis] 5 mg PO BID #60 tab Continue Simvastatin [Zocor] 20 mg PO HS Levothyroxine Sodium [Synthroid] 88 mcg PO DAILY hydroCHLOROthiazide 25 mg PO DAILY Ubidecarenone [Co Q-10] 200 mg PO DAILY@1400 Losartan Potassium 100 mg PO DAILY Zinc 50 mg PO DAILY@1400 atenoloL 25 mg PO BID Cholecalciferol [Vitamin D3 (25 Mcg = 1000 Iu)] 50 mcg PO DAILY@1400 Discontinued Aspirin EC [Ecotrin Low Dose] 81 mg PO HS Discharge Medication List Levothyroxine Sodium [Synthroid] 88 mcg PO DAILY 01/07/16 [History] Simvastatin [Zocor] 20 mg PO HS 01/07/16 [History] Ubidecarenone [Co Q-10] 200 mg PO DAILY@1400 01/07/16 [History] hydroCHLOROthiazide 25 mg PO DAILY 01/07/16 [History] Losartan Potassium 100 mg PO DAILY 05/05/21 [History] Zinc 50 mg PO DAILY@1400 05/05/21 [History] atenoloL 25 mg PO BID 05/05/21 [History] Cholecalciferol [Vitamin D3 (25 Mcg = 1000 Iu)] 50 mcg PO DAILY@1400 09/17/22 [History] Apixaban [Eliquis] 5 mg PO BID #60 tab 09/20/22 [Rx] Escitalopram [Lexapro] 5 mg PO DAILY #30 tab 09/20/22 [Rx] amLODIPine [Norvasc] 5 mg PO DAILY #30 tab 09/20/22 [Rx] Follow up Appointment(s)/Referral(s): Samira Roach MD [Primary Care Provider] - 1-2 days Paulie Iverson MD [STAFF PHYSICIAN] - 1 Week Ambulatory/Diagnostic Orders: Basic Metabolic Panel [LAB.AMB] Time Frame: 2 Days, Location: None Selected Patient Instructions/Handouts: A-fib (Atrial Fibrillation) (DC), Safe Use of Anticoagulants (DC) Activity/Diet/Wound Care/Special Instructions: Patient is discharged on eliquis twice a day No prescription coverage currently and she is given discount card for first month free Follow up with Dr. Iverson in the office in the next 1 to 2 weeks and before eliquis runs out. Cardiology will further address anticoagulation on follow up in the office. Started on escitalopram (lexapro) for anxiety it make take 4 to 6 weeks to feel the full affects of this medication. If you experience increased anxiety, depression or suicidal ideations discontinue mediation and notify your provider. Continue current blood pressure medications and monitor blood pressure at home. Recommend to take over the counter potassium supplementation. Repeat labs in 2 to 3 days to monitor potassium level. Discharge Disposition: HOME SELF-CARE
== END 2022-09-20 15:26 | disposition home or self-care (01) | DRG 310 ==
LOC: EC 17:02 → 3SCARD 22:27
PROVIDERS: ADMIT Family Medicine; ATTEND Family Medicine
DX: I48.20 Chronic atrial fibrillation, unspecified (principal); I12.9 Hypertensive chronic kidney disease with stage 1 through stage 4 chronic kidney disease, or unspecified chronic kidney disease; E03.9 Hypothyroidism, unspecified; E78.5 Hyperlipidemia, unspecified; I08.3 Combined rheumatic disorders of mitral, aortic and tricuspid valves; N18.30 Chronic kidney disease, stage 3 unspecified; F41.9 Anxiety disorder, unspecified; Z79.01 Long term (current) use of anticoagulants; Z79.890 Hormone replacement therapy; Z79.899 Other long term (current) drug therapy; Z96.1 Presence of intraocular lens; Z98.42 Cataract extraction status, left eye; Z98.41 Cataract extraction status, right eye; Z88.2 Allergy status to sulfonamides; Z88.8 Allergy status to other drugs, medicaments and biological substances; Z91.013 Allergy to seafood
CPT/HCPCS: 36415; 71046; 80048; 80053; 80061; 83735; 83880; 84132; 84443; 84484; 85025; 85610; 85730; 93005; 93306; 94760; 96372; 96374; 99285

== ENCOUNTER 2024-03-04 11:00 | Emergency (ER) | payer MEDICARE, BC ==
[2024-03-04 11:44] VITALS: TEMP 98.3
[2024-03-04] MEDS: ACET/COD 300 MG/30 MG STARTER PACK 6 TAB BTL PO STA (11:58)
[2024-03-04] MEDS: cefTRIAXone 1,000 MG VIAL (IM USE) IM STA (11:59)
--- NOTE | 2024-03-04 12:02 | ED ---
ENT HPI - General Chief complaint: Dental/Oral Stated complaint: dental pain Time Seen by Provider: 03/04/24 11:20 Source: patient, RN notes reviewed Mode of arrival: ambulatory Limitations: no limitations - History of Present Illness Initial comments: 83-year-old female presenting with dental pain x 3 days. States she has had this pain intermittently for the past year or so with sensitivity to sugar however over the past 3 days the pain has significantly worsened and she feels there is a white mass on her right upper gingiva that is very painful. States she can only eat liquids due to pain. She is able to swallow with no difficulties. Denies fever or chills. - Related Data Home Medications Medication Instructions Recorded Confirmed Levothyroxine Sodium [Synthroid] 88 mcg PO DAILY 01/07/16 09/17/22 Simvastatin [Zocor] 20 mg PO HS 01/07/16 09/17/22 Ubidecarenone [Co Q-10] 200 mg PO DAILY@1400 01/07/16 09/17/22 hydroCHLOROthiazide 25 mg PO DAILY 01/07/16 09/17/22 Losartan Potassium 100 mg PO DAILY 05/05/21 09/17/22 Zinc 50 mg PO DAILY@1400 05/05/21 09/17/22 atenoloL 25 mg PO BID 05/05/21 09/17/22 Cholecalciferol [Vitamin D3 (25 50 mcg PO DAILY@1400 09/17/22 09/17/22 Mcg = 1000 Iu)] Previous Rx's Medication Instructions Recorded Apixaban [Eliquis] 5 mg PO BID #60 tab 09/20/22 Escitalopram [Lexapro] 5 mg PO DAILY #30 tab 09/20/22 amLODIPine [Norvasc] 5 mg PO DAILY #30 tab 09/20/22 Amoxic-Pot Clav 875-125Mg 1 tab PO Q12HR #20 tab 03/04/24 [Augmentin 875-125] Allergies Allergy/AdvReac Type Severity Reaction Status Date / Time glucose oxidase Allergy redness of Verified 03/04/24 11:12 [From Biotene Dry Mouth] face lactoperoxidase Allergy redness of Verified 03/04/24 11:12 [From Biotene Dry Mouth] face potassium thiocyanate Allergy redness of Verified 03/04/24 11:12 [From Biotene Dry Mouth] face shellfish derived Allergy Vomiting Verified 03/04/24 11:12 sulfamethoxazole Allergy Rash/Hives Verified 03/04/24 11:12 [From Bactrim] trimethoprim [From Bactrim] Allergy Rash/Hives Verified 03/04/24 11:12 niacin AdvReac redness to Verified 03/04/24 11:12 face otc dry mouth spray Allergy redness of Uncoded 03/04/24 11:12 face Review of Systems ROS Statement: Those systems with pertinent positive or pertinent negative responses have been documented in the HPI. ROS Other: All systems not noted in ROS Statement are negative. Past Medical History Past Medical History: Hyperlipidemia, Hypertension, Thyroid Disorder Additional Past Medical History / Comment(s): abnormal vaginal bleeding History of Any Multi-Drug Resistant Organisms: None Reported Past Surgical History: Adenoidectomy, Tonsillectomy Additional Past Surgical History / Comment(s): nasal sx-bx done was neg, maris cataract-lens implants, bx rt breast/lumpectomy(was benign) Past Anesthesia/Blood Transfusion Reactions: No Reported Reaction Additional Past Anesthesia/Blood Transfusion Reaction / Comment(s): no blood tr ansfusions Past Psychological History: No Psychological Hx Reported Smoking Status: Never smoker Past Alcohol Use History: None Reported Past Drug Use History: None Reported - Past Family History Father Family Medical History: Cancer Additional Family Medical History / Comment(s): cancer of the bowel, glaucoma Mother Family Medical History: Asthma Additional Family Medical History / Comment(s): at age 69, lung disease, mental health issues General Exam Limitations: no limitations General appearance: alert, in no apparent distress Head exam: Present: atraumatic, normocephalic, normal inspection ENT exam: Present: mucous membranes moist, other (Diffuse dental caries throughout oral cavity. There is a 1 x 1 cm fluctuant, tender mass present on right upper gingiva with no erythema or drainage.) Neck exam: Present: normal inspection. Absent: tenderness, meningismus, lymphadenopathy Respiratory exam: Present: normal lung sounds bilaterally. Absent: respiratory distress, wheezes, rales, rhonchi, stridor Cardiovascular Exam: Present: regular rate, normal rhythm, normal heart sounds. Absent: systolic murmur, diastolic murmur, rubs, gallop, clicks Psychiatric exam: Present: normal affect, normal mood Skin exam: Present: warm, dry, intact, normal color. Absent: rash Course Vital Signs 03/04/24 03/04/24 11:09 12:31 Temperature 98.3 F Pulse Rate 67 62 Respiratory 20 18 Rate Blood Pressure 161/85 145/87 O2 Sat by Pulse 96 97 Oximetry Procedures - Incision & Drainage Consent Obtained: verbal consent Indication: dental abscess Site: oral Size (cm): 1 Culture Obtained?: No Patient Tolerated Procedure: well, no complications, other (Attempted to drain abscess with 18-gauge needle. Minimal drainage was achieved.) Medical Decision Making - Medical Decision Making Was pt. sent in by a medical professional or institution (, COLTEN, INSERTER OPERATOR, urgent care, hospital, or prison...) When possible be specific @ -No Did you speak to anyone other than the patient for history (EMS, parent, family, police, friend...)? What history was obtained from this source @ -No Did you review nursing and triage notes (agree or disagree)? Why? @ -I reviewed and agree with nursing and triage notes Were old charts reviewed (outside hosp., previous admission, EMS record, old EKG, old radiological studies, urgent care reports/EKG's, prison records)? Report findings @ -No old charts were reviewed Differential Diagnosis (chest pain, altered mental status, abdominal pain women, abdominal pain men, vaginal bleeding, weakness, fever, dyspnea, syncope, headache, dizziness, GI bleed, back pain, seizure, CVA, palpatations, mental health, musculoskeletal)? @ -Dental abscess, dental infection, TMJ dysfunction, strep pharyngitis, dental caries EKG interpreted by me (3pts min.). @ -None X-rays interpreted by me (1pt min.). @ -None done CT interpreted by me (1pt min.). @ -None done U/S interpreted by me (1pt. min.). @ -None done What testing was considered but not performed or refused? (CT, X-rays, U/S, labs)? Why? @ -None What meds were considered but not given or refused? Why? @ -Toradol not given for pain due to patient is on Eliquis Did you discuss the management of the patient with other professionals (professionals i.e. , COLTEN, INSERTER OPERATOR, lab, RT, psych nurse, social media sr strategy manager, photo studio assistant, teacher, electrical engineering drafting officer, telephonic case manager)? Give summary @ -No Was smoking cessation discussed for >3mins.? @ -No Was critical care preformed (if so, how long)? @ -No Were there social determinants of health that impacted care today? How? (Homelessness, low income, unemployed, alcoholism, drug addiction, trans portation, low edu. Level, literacy, decrease access to med. care, fpc, rehab)? @ -No Was there de-escalation of care discussed even if they declined (Discuss DNR or withdrawal of care, Hospice)? DNR status @ -No What co-morbidities impacted this encounter? (DM, HTN, Smoking, COPD, CAD, Cancer, CVA, ARF, Chemo, Hep., AIDS, mental health diagnosis, sleep apnea, morbid obesity)? @ -None Was patient admitted / discharged? Hospital course, mention meds given and route, prescriptions, significant lab abnormalities, going to OR and other pertinent info. @ -Patient was discharged. Patient was seen and evaluated for right-sided dental pain x 3 days. Vitals are stable. There are no red flag symptoms present. Physical examination reveals 1 x 1 cm fluctuant mass in right upper gingiva posterior to molar. Patient agreed to attempt incision and drainage. Minimal drainage was released. Patient was given Rocephin injection. Given Tylenol threes for pain. Prescribed Augmentin. Supportive care discussed. Advised to avoid chewing on right side. Instructed to follow-up with dentist on Wednesday. Strict return/alarm symptoms discussed with patient in detail and she shows understanding and agrees to plan. Case discussed with Dr. Morris. Patient discharged in stable condition. Undiagnosed new problem with uncertain prognosis? @ -No Drug Therapy requiring intensive monitoring for toxicity (Heparin, Nitro, Insulin, Cardizem)? @ -No Were any procedures done? @ -I&D attempted with little drainage expelled Diagnosis/symptom? @ -Dental abscess Acute, or Chronic, or Acute on Chronic? @ -Acute Uncomplicated (without systemic symptoms) or Complicated (systemic symptoms)? @ -Uncomplicated Side effects of treatment? @ -No Exacerbation, Progression, or Severe Exacerbation? @ -No Poses a threat to life or bodily function? How? (Chest pain, [place], [place], pneumonia, PE, COPD, DKA, ARF, appy, cholecystitis, CVA, Diverticulitis, Homicidal, Suicidal, threat to staff... and all critical care pts) @ -Low likelihood Disposition Clinical Impression: Dental abscess Disposition: HOME SELF-CARE Condition: Stable Instructions (If sedation given, give patient instructions): Dental Abscess (ED) Additional Instructions: Please follow-up with dentist on Wednesday. Please return to the Emergency Department if symptoms worsen or any other concerns. Prescriptions: Amoxic-Pot Clav 875-125Mg [Augmentin 875-125] 1 tab PO Q12HR #20 tab Is patient prescribed a controlled substance at d/c from ED?: No Referrals: Ita Palma DO [Primary Care Provider] - 1-2 days Time of Disposition: 12:22
[2024-03-04] MEDS: BENZOCAINE SPRAY 1 CAN TOPICAL STA (12:24)
[2024-03-04 12:35] VITALS: BP 145/87; PULSE 62; RESP 18
== END 2024-03-04 12:32 | disposition home or self-care (01) ==
LOC: EC 11:00
DX: K04.7 Periapical abscess without sinus (principal); Z88.1 Allergy status to other antibiotic agents; Z88.2 Allergy status to sulfonamides; Z88.3 Allergy status to other anti-infective agents; Z91.013 Allergy to seafood; Z88.7 Allergy status to serum and vaccine; Z88.8 Allergy status to other drugs, medicaments and biological substances
CPT/HCPCS: 99283 ×2; 96372 ×2; 41800; J0696